=== PATIENT | female | born 1945 | race Caucasian/White ===

== ENCOUNTER 2016-05-20 07:17 | Inpatient (IN) | payer MEDICARE ==
[~2016-05-20] VITALS: Ht 149.9 cm; Wt 72.3 kg
[2016-05-20] VITALS (12 sets, daily range): BP systolic 96–141; BP diastolic 32–70
[~2016-05-20 07:17] MED LIST: ASPI325T4 PO; CHOL10002 PO; DULO60CA6 PO; ISOS10TA4 PO; ISOS60TA2 PO; LORA0.5T PO; LOSA50TA2 PO; METO25TA4 PO; PREG75CA PO; SIMV40TA3 PO; TRAZ50TA15 PO
[2016-05-20] MEDS ORDERED: BACITRACIN 50,000 UNIT in IV NORMAL SALINE 250ML 250 ML IRR ONE (07:45)
[2016-05-20] MEDS ORDERED: VANCOMYCIN 1GM IVPB FOR OMNI 250 ML IV ONE (07:45)
[2016-05-20] MEDS ORDERED: FURO20TA3 PO (07:52)
[2016-05-20] MEDS ORDERED: LIDO700A4 TP (07:52)
[2016-05-20] MEDS ORDERED: CHOL500050 PO (07:52)
[2016-05-20] MEDS ORDERED: SERT100T PO (07:52)
[2016-05-20] MEDS ORDERED: PREG50CA PO (07:52)
[2016-05-20] MEDS ORDERED: LOSA1TAB18 PO (07:52)
[2016-05-20] MEDS ORDERED: POTA20TA4 PO (07:52)
[2016-05-20] MEDS ORDERED: NITR0.4T SL (07:52)
[2016-05-20] MEDS ORDERED: BIMA2.5D EACHEYE (07:52)
[2016-05-20] MEDS ORDERED: ATOR10TA60 PO (07:52)
[2016-05-20] MEDS ORDERED: [UNRECOGNIZED DRUG - OTHER] EACHEYE (07:52)
[2016-05-20] MEDS ORDERED: TOPI100T90 PO (07:52)
[2016-05-20] MEDS ORDERED: TRAM50TA PO (07:54)
[2016-05-20 08:04] LABS: PROTHROMBIN TIME PATIENT 12.7 SEC (11.7-14.0)
[2016-05-20] MEDS ORDERED: DICL1PAT4 TD (08:04)
[2016-05-20 08:20] LABS: HEMATOCRIT 43.3 % (36.0-47.0); HEMOGLOBIN 14.5 g/dL (12.0-15.5); RED BLOOD COUNT 4.45 x10^6/uL (3.50-5.40); RED CELL DISTRIBUTION WIDTH 12.8 % (11.5-14.5); WHITE BLOOD COUNT 5.3 x10^3/uL (4.0-11.0)
[2016-05-20 08:24] LABS: CALCIUM 9.6 mg/dL (8.5-10.1); CREATININE 0.9 mg/dL (0.6-1.0); GFR 61.7; POTASSIUM 4.2 mmol/L (3.5-5.1)
[2016-05-20] MEDS ORDERED: ALBU2.5V14 NEB (08:35)
[2016-05-20] MEDS ORDERED: LIDOCAINE 2%/EPI 1:100,000 20 ML VIAL. ONE (08:50)
[2016-05-20] MEDS ORDERED: FENTANYL PF 100 MCG/2 ML VIAL. IV ONE (10:30)
[2016-05-20] MEDS ORDERED: MIDAZOLAM HCL/PF 5 MG/5 ML VIAL IV ONE (10:30)
[2016-05-20] MEDS ORDERED: LIDOCAINE 2%/EPI 1:100,000 20 ML VIAL. IJ ONE (10:30)
[2016-05-20] MEDS ORDERED: FENTANYL PF 100 MCG/2 ML VIAL. ONE ×3 (10:44→11:50)
[2016-05-20] MEDS ORDERED: MIDAZOLAM HCL/PF 5 MG/5 ML VIAL ONE (10:44)
[2016-05-20] MEDS ORDERED: MIDAZOLAM HCL 2 MG/2 ML VIAL. ONE (11:26)
[2016-05-20] MEDS ORDERED: MIDAZOLAM HCL 2 MG/2 ML VIAL. IV ONE (11:51)
[2016-05-20] MEDS ORDERED: ACET-706 PO (12:17)
[2016-05-20] MEDS ORDERED: CODEINE PO (12:17)
[2016-05-20] MEDS ORDERED: TYLENOL PO (12:17)
[2016-05-20] MEDS ORDERED: ISOS60TA2 PO (14:12)
[2016-05-20] MEDS ORDERED: ALBUTEROL SULFATE 2.5 MG/3 ML NEBU. NEB PRN (14:15)
[2016-05-20] MEDS ORDERED: NITROGLYCERIN SUBLINGUAL 0.4 MG BOTTLE OF 25. SL PRN (14:15)
[2016-05-20] MEDS ORDERED: ACETAMINOPHEN 500 MG TABLET PO PRN (14:30)
[2016-05-20] MEDS: FUROSEMIDE 20 MG TABLET PO SCH (14:41)
[2016-05-20] MEDS ORDERED: NO ANTICOAGULANT THERAPY. MC PRN (14:45)
--- NOTE | 2016-05-20 15:00 | CARD ---
APPROVED REPORT HISTORY The Patient is a 71 year-old female with a history of SSS, with > 3.5 second pauses on event monitor with prior admission for syncope of unclear etiology PROCEDURES Insertion Dual Chamber Pacemaker FLUORO TIME: 3.2 mins 21.31mGy [id number] 40 mL of 2% lidocaine was infiltrated into the skin and subcutaneous tissues for local anesthesia. A n incision was made over the left infraclavicular fossa and using blunt dissection and cautery a pock et was created. Venous access was obtained in the left subclavian vein and 6 [place] sheaths were ins erted. Subsequently, a [employer] bipolar active fixation right ventricular lead model 2088TC/52, serial numbe r [id number] was advanced under fluoroscopic guidance and the tip was positioned in the right ventricu lar apex. Following this, a [employer] bipolar active fixation right atrial lead model 2088TC/46 seria l number [id number] was placed in the right atrial appendage under fluoroscopy guidance. The leads we re secured into place and were attached to a [employer] dual-chamber permanent pacemaker generator mode l [id number], serial number [id number]. This was placed in the pocket that was subsequently closed in 3 laye rs. Hemostasis was secured. At the end of procedure, the right ventricular lead showed sensing amplitude of 12.4 mV, impedance of 580 ohms and a threshold of 0.5 volts. The right atrial lead showed a sensing amplitude of 1.5 mill ivolts, impedance of 493 ohms and a threshold of 1.1 volts. Patient tolerated the procedure well. Th ere were no immediate complications. CONCLUSION Successful insertion of a [employer] Dual Chamber pacemaker for SSS and syncope.
[2016-05-20] MEDS: HYDROCODONE/APAP 5/325MG TABLET. PO PRN ×2 (15:07→19:32)
[2016-05-20] MEDS: PREGABALIN 50 MG CAPSULE PO SCH ×2 (15:08→20:56)
--- NOTE | 2016-05-20 15:14 | RAD ---
EXAM: Chest one view. HISTORY: Pacemaker placement. COMPARISON: 01/11/2014. FINDINGS: A frontal view of the chest is obtained. A left-sided pacemaker has its leads in the right atrium and right ventricle. There are changes of coronary artery bypass grafting. There is a chronic focal scarring in the left costophrenic angle. There is no pneumothorax or pleural effusion. The heart is not enlarged. There are atherosclerotic calcifications of the aorta. IMPRESSION: 1. Left pacemaker in expected position. No pneumothorax.
[2016-05-20] MEDS: POTASSIUM CHLORIDE 20 MEQ TABLET.ER. PO SCH (17:19)
[2016-05-20] MEDS: traZODone 100 MG TABLET. PO SCH (20:56)
[2016-05-20] MEDS: ATORVASTATIN CALCIUM 10 MG TABLET. PO SCH (20:56)
[2016-05-20] MEDS: LATANOPROST 0.005% OPHTH SOLUTION 2.5ML BOTTLE. OU SCH (21:08)
[2016-05-21] MEDS ORDERED: VANCOMYCIN 1 GM in IV NORMAL SALINE 250ML 250 ML IV ONE (00:30)
[2016-05-21] MEDS: HYDROCODONE/APAP 5/325MG TABLET. PO PRN ×4 (02:27→20:09)
[2016-05-21 02:33] VITALS: BP 158/77
[2016-05-21 07:00] VITALS: BP 135/50
--- NOTE | 2016-05-21 08:36 | RAD ---
EXAM: Chest 2 views. HISTORY: Pacemaker placement. COMPARISON: 05/20/2016. FINDINGS: Frontal and lateral views of the chest are obtained. A left-sided pacemaker has its leads in the right atrium and right ventricle. There are changes of coronary artery bypass grafting. An opacity in the left costophrenic angle indicates atelectasis or scarring. Blunting of the left costophrenic angle is chronic. There is no clear pleural effusion. There is no pneumothorax. The heart is not enlarged. There are atherosclerotic calcifications of the aorta. IMPRESSION: 1. Left pacemaker in expected position. No pneumothorax.
[2016-05-21] MEDS: FUROSEMIDE 20 MG TABLET PO SCH ×2 (08:52→14:00)
[2016-05-21] MEDS: POTASSIUM CHLORIDE 20 MEQ TABLET.ER. PO SCH ×2 (08:52→13:00)
[2016-05-21] MEDS: ASPIRIN 325 MG TABLET PO SCH (08:53)
[2016-05-21] MEDS: PREGABALIN 50 MG CAPSULE PO SCH ×3 (08:53→20:09)
[2016-05-21] MEDS: TOPIRAMATE 100 MG TABLET. PO SCH (08:53)
[2016-05-21] MEDS: SERTRALINE 50 MG TABLET. PO SCH (08:53)
[2016-05-21] MEDS: LOSARTAN POTASSIUM 50 MG TABLET. PO SCH (08:54)
[2016-05-21] MEDS: ISOSORBIDE MONONITRATE ER 60 MG TAB.ER.24H PO SCH (08:54)
[2016-05-21] MEDS: ONDANSETRON PF 4 MG/2 ML VIAL. IV PRN ×2 (09:49→20:12)
--- NOTE | 2016-05-21 10:48 | PDOC ---
VALERIAYAMILEX DEE DIRECTOR OF CUSTOMER SERVICE 05/21/16 1048: CARDIO Progress Notes Date and Time Date of Service 05/21/2016 Time of Evaluation 1030 Subjective Subjective: No Chest Pain, No shortness of breath, No Palpitations, Other ( nausea today, feels weak) Vitals Vitals Vital Signs Date Time Temp Pulse Resp B/P Pulse Ox O2 Delivery O2 Flow Rate FiO2 05/21/16 08:54 69 135/50 05/21/16 07:51 Room Air 05/21/16 07:39 18 94 05/21/16 07:00 98.9 98.9 Weight Weight [ ] Input and Output Intake and Output Intake and Output 05/21/16 07:00 Intake Total 1280 ml Output Total 675 ml Balance 605 ml Intake Oral 1280 ml Output Urine Total 675 ml Physical Exam HEENT: Neck Supple W Full Motion Chest: Symmetric LUNGS: Clear to Auscultation Heart: S1S2, RRR Abdomen: Soft N/T Extremities: No Calf Tenderness Neurology: alert, oriented, follow commands Other Exams left chest surgical incision dry and intact. Neurovascular status to bilateral LE intact Assessment Assessment 1. SSS: S/P [employer] Dual Chamber pacemaker. No complications 2. Weakness/nausea 3. HTN/HLP 4. Mild . Recommendation 1. OT/PT today, safety concern 2. CXR/interrgoate device. 3. Anticipate DC in AM. 4. Continue with secondary prevention MITCHELL REGAN MD 05/21/16 1657: CARDIO Progress Notes Plan Plan Patient seen and examined. Agree with above nurse practitioner note. No acute events overnight. Status post dual-chamber pacemaker with the excellent results. Has normal functioning device is morning on interrogation. Due to her multiple sedative agents she feels a little lightheaded and had some dizziness. Otherwise no significant pathology. Left infraclavicular pacemaker site appears to be clean, dry and intact. Will give IV fluids and have physical therapy and occupational therapy assess her. Anticipate monitoring overnight and likely discharge in a.m. if she is stable. YAMILEX MULLIGAN APRN May 21, 2016 10:48 MITCHELL REGAN MD May 21, 2016 16:57
[2016-05-21 11:00] VITALS: BP 100/48
[2016-05-21] MEDS ORDERED: IV NORMAL SALINE 500ML BAG 500 ML IV ONE (12:45)
[2016-05-21 15:12] VITALS: BP 124/52
[2016-05-21 19:00] VITALS: BP 166/84
[2016-05-21] MEDS: LATANOPROST 0.005% OPHTH SOLUTION 2.5ML BOTTLE. OU SCH (20:08)
[2016-05-21] MEDS: ATORVASTATIN CALCIUM 10 MG TABLET. PO SCH (20:09)
[2016-05-21] MEDS: traZODone 100 MG TABLET. PO SCH (20:09)
[2016-05-21 22:32] VITALS: BP 113/54
[2016-05-22 03:23] VITALS: BP 150/52
[2016-05-22] MEDS: HYDROCODONE/APAP 5/325MG TABLET. PO PRN ×4 (03:23→22:11)
[2016-05-22 06:10] LABS: CALCIUM 9.2 mg/dL (8.5-10.1); CREATININE 0.9 mg/dL (0.6-1.0); GFR 61.7
[2016-05-22 07:16] VITALS: BP 129/64
[2016-05-22] MEDS: PREGABALIN 50 MG CAPSULE PO SCH ×3 (08:41→20:14)
[2016-05-22] MEDS: ASPIRIN 325 MG TABLET PO SCH (08:41)
[2016-05-22] MEDS: ISOSORBIDE MONONITRATE ER 60 MG TAB.ER.24H PO SCH (08:42)
[2016-05-22] MEDS: TOPIRAMATE 100 MG TABLET. PO SCH (08:42)
[2016-05-22] MEDS: FUROSEMIDE 20 MG TABLET PO SCH ×2 (08:42→14:00)
[2016-05-22] MEDS: LOSARTAN POTASSIUM 50 MG TABLET. PO SCH ×2 (08:42→12:00)
[2016-05-22] MEDS: POTASSIUM CHLORIDE 20 MEQ TABLET.ER. PO SCH ×2 (08:43→18:03)
[2016-05-22] MEDS: SERTRALINE 50 MG TABLET. PO SCH (09:30)
[2016-05-22 10:06] VITALS: BP 86/40
--- NOTE | 2016-05-22 10:43 | PDOC3 ---
Discharge Summary Visit Information Date of Admission: May 20, 2016 Date of Discharge: May 22, 2016 Admitting Diagnosis: SSS; S/P PPM placement Final Diagnosis SSS: S/P PPM placement Brief Hospital Course Allergies Allergies Coded Allergies Type Severity Reaction Last Updated Verified clindamycin HCl Allergy Severe hives 03/23/13 Yes clindamycin palmitate HCl Allergy Severe hives 03/23/13 Yes clindamycin phosphate Allergy Severe hives 03/23/13 Yes lisinopril Allergy Severe Shortness of Air 03/23/13 Yes Penicillins Allergy Intermediate Hives 03/23/13 Yes docusate Allergy Intermediate 03/18/16 Yes promethazine HCl Allergy Intermediate "Regress to childhood" 03/23/13 Yes Uncoded Allergies Type Severity Reaction Last Updated Verified blue cheese Allergy Unknown 05/20/16 Vital Signs Vital Signs Date Time Temp Pulse Resp B/P Pulse Ox O2 Delivery O2 Flow Rate FiO2 05/22/16 10:06 98.8 67 18 86/40 94 Room Air 98.8 Lab Results Laboratory Tests Test 05/22/16 05:00 Sodium Level 142mmol/L (136-145) Potassium Level 4.0mmol/L (3.5-5.1) Chloride Level 103mmol/L (98-107) Carbon Dioxide Level 29mmol/L (21-32) Anion Gap 10 (6-14) Blood Urea Nitrogen 15mg/dL (7-20) Creatinine 0.9mg/dL (0.6-1.0) Estimated GFR (Cockcroft-Gault) 61.7 Glucose Level 157mg/dL (70-99) Calcium Level 9.2mg/dL (8.5-10.1) Laboratory Tests Test 05/22/16 05:00 Sodium Level 142mmol/L (136-145) Potassium Level 4.0mmol/L (3.5-5.1) Chloride Level 103mmol/L (98-107) Carbon Dioxide Level 29mmol/L (21-32) Anion Gap 10 (6-14) Blood Urea Nitrogen 15mg/dL (7-20) Creatinine 0.9mg/dL (0.6-1.0) Estimated GFR (Cockcroft-Gault) 61.7 Glucose Level 157mg/dL (70-99) Calcium Level 9.2mg/dL (8.5-10.1) Brief Hospital Course This is a pleasant 71 yo female admitted for planned PPM placement. Pt has been noted with SSS verified via event monitor. She tolerated procedure well except for feeling of weakness and significant nausea mainly on POD#1 prompting her to stay for one more day. AOx3, did well with OT/PT evaluation, ambulated in rouse way without difficulty. Lungs are clear to auscultation and surgical pain is controlled. VSS has been stable but this morning she was noted with low BP post antihypertensive medications with mild dizziness. BP med will then be decreased and encourage pt to make a BP diary and to call our office for BP outside the parameters given. No complication otherwise. Left chest incision intact with steri strips well approximated dry and no oozing. Left arm on a sling and activity limitation discussed. Neurovascular status to LUE intact. DC late this afternoon to her daughters home which she will stay in the next 2 days if BP is consistently adequate. Post pacemaker instructions have been reviewed. Discharge Information Condition at Discharge: Stable Follow Up: Weeks (1-2 week wound check then follow up in 3 months) Disposition/Orders: D/C to Home (to daughter) Scheduled ([senbrnza]) 1 DROP EACHEYE TID (Reported) Aspirin (Aspirin) 325 MG PO DAILY (Reported) Atorvastatin Calcium (Atorvastatin Calcium) 10 MG PO HS (Reported) Bimatoprost (Lumigan) 1 DROP EACHEYE QHS (Reported) Cholecalciferol (Vitamin D3) (Vitamin D) 100,000 UNIT PO QTU (Reported) Diclofenac Epolamine (Flector) 1 EACH TD 3X/WEEK (Reported) Duloxetine Hcl (Cymbalta) 60 MG PO BID (Reported) Furosemide (Furosemide) 20 MG PO BID (Reported) Isosorbide Mononitrate (Isosorbide Mononitrate Er) 1 TAB PO DAILY (Reported) Lidocaine (Lidoderm) 1 PATCH TP DAILY (Reported) Losartan Potassium (Losartan Potassium) MG PO DAILY (Reported) Potassium Chloride (Klor-Con M20) 20 MEQ PO BID (Reported) Pregabalin (Lyrica) 50 MG PO TID (Reported) Sertraline Hcl (Zoloft) 100 MG PO DAILY (Reported) Topiramate (Topiramate) 100 MG PO DAILY (Reported) Trazodone Hcl (Trazodone Hcl) 100 MG PO HS (Reported) Scheduled PRN ([tylenol w/codeine #5]) 1 TAB PO Q4HRS PRN PRN PAIN (Reported) Acetaminophen With Codeine (Tylenol With Codeine #4 Tablet) 1 TAB PO PRN Q4HRS PRN PRN PAIN (Reported) Albuterol Sulfate (Albuterol Sulfate Conc Neb Soln) 1 VIAL NEB Q4HRS PRN PRN SHORTNESS OF BREATH (Reported) Lorazepam (Lorazepam) 1 MG PO PRN BID PRN PRN ANXIETY / AGITATION (Reported) Nitroglycerin (Nitrostat) 0.4 MG SL PRN Q5MIN PRN PRN CHEST PAIN (Reported) Tramadol Hcl (Tramadol Hcl) 1 TAB PO BID PRN PRN PAIN (Reported) Discontinued Medications Isosorbide Mononitrate (Isosorbide Mononitrate Er) 1 TAB PO DAILY08 (Reported) Losartan/Hydrochlorothiazide (Losartan-Hctz 100-12.5 Mg Tab) 1 EACH PO DAILY ( Reported) Patient Instructions Patient Instructions Must know & what to expect after device implant: 1. Your surgical dressing should be removed prior to discharge from the hospital, but allow the steri- strips to fall off naturally. 2. Activity restrictions: DO NOT raise arm above shoulder level, lift anything heavier than a gallon of milk, and no push or pull motions such as vacuuming/lawn mowing, no swinging motions (golf), etc for 4 weeks. 3. It is OK to use a cell phone or other electronic devices just be sure you do not store it in a breast pocket on the side where the device was placed. 4. Device will be interrogated prior to your discharge from the hospital and then every 3 months for defibrillators and every 6 months for pacemakers. You may be asked to have your device checked remotely from home as well, but this will depend on your particular physicians preference. 5. You may remove the arm immobilizer the day after device placement. Wear the arm immobilizer/splint at night (during sleep times) for 2 week to prevent unintended arm movement that can cause lead dislodgement. 6. Do not drive for one week as the task of driving may lead to unintended arm motion that may cause lead dislodgement. The seatbelt will also rub against the incision site & cause irritation. 7. It is our recommendation that you utilize Tylenol at home for pain control. You need to call our office if you are having uncontrollable pain at the incision site. 8. Keep your incision clean and dry. It is OK to shower. DO NOT submerge in bath, pool, or hot tub, until cleared by your doctor, as this could lead to increase risk of infection.. It is OK to use regular soap just do not scrub the incision site. Water spray from shower should not directly hit the incision. Be sure to blot dry not rub. 9. Inspect your incision daily. If you notice any increased redness, swelling , or drainage, or if you start running a fever, call the office immediately. The number is [phone]. 10. For women, if you need to protect against irritation from the bra straps, you can place a piece of gauze over the incision site for cushion. Please be sure to tape it loosely to allow air to the site & remove the gauze when you remove the bra. 11. Be sure to carry your device identification information card in your wallet/purse at all times. 12. It is OK to go through security at the airport with your device, but be sure to let the TSA know prior to proceeding as the security settings change depending on varying factors. Please do whatever is requested by security at that time. 13. Some of the newer devices may be MRI compatible but, currently, the use of these devices is not widespread, so you likely will not be able to have an MRI. Please clarify this with your physician. If at any time, you feel lightheaded or dizzy/faint, stop what you are doing & lie down immediately. If you are driving, get to the side of the road quickly, turn your car off & call 911 on your cell phone. DO NOT continue to drive as this may cause an accident that seriously injures yourself &/or others. Call the office at [phone] for any questions or concerns. YAMILEX MULLIGAN APRN May 22, 2016 10:43
[2016-05-22] MEDS ORDERED: LOSA50TA6 PO (11:12)
[2016-05-22] MEDS ORDERED: ISOS30TA4 PO (11:12)
[2016-05-22] MEDS ORDERED: IV NORMAL SALINE 500ML BAG 500 ML IV ONE (11:15)
[2016-05-22] MEDS ORDERED: IV NORMAL SALINE 1000ML BAG 1,000 ML IV ONE (11:30)
[2016-05-22 14:32] VITALS: BP 111/47
[2016-05-22 19:00] VITALS: BP 96/50
[2016-05-22] MEDS: ATORVASTATIN CALCIUM 10 MG TABLET. PO SCH (20:14)
[2016-05-22] MEDS: traZODone 100 MG TABLET. PO SCH (20:14)
[2016-05-22] MEDS: LATANOPROST 0.005% OPHTH SOLUTION 2.5ML BOTTLE. OU SCH (20:14)
[2016-05-22 22:50] VITALS: BP 110/73
[2016-05-23] VITALS (8 sets, daily range): BP systolic 95–122; BP diastolic 33–78
[2016-05-23] MEDS: HYDROCODONE/APAP 5/325MG TABLET. PO PRN ×3 (03:56→20:18)
[2016-05-23] MEDS: TOPIRAMATE 100 MG TABLET. PO SCH (09:00)
[2016-05-23] MEDS: FUROSEMIDE 20 MG TABLET PO SCH ×2 (09:00→14:00)
[2016-05-23] MEDS: ASPIRIN 325 MG TABLET PO SCH (09:00)
[2016-05-23] MEDS: SERTRALINE 50 MG TABLET. PO SCH (09:00)
[2016-05-23] MEDS: PREGABALIN 50 MG CAPSULE PO SCH ×3 (09:00→20:18)
[2016-05-23] MEDS: POTASSIUM CHLORIDE 20 MEQ TABLET.ER. PO SCH ×2 (09:03→17:00)
[2016-05-23] MEDS: ISOSORBIDE MONONITRATE ER 30 MG TAB.ER.24H PO SCH (13:14)
[2016-05-23] MEDS: LOSARTAN POTASSIUM 50 MG TABLET. PO SCH (13:14)
[2016-05-23] MEDS: ATORVASTATIN CALCIUM 10 MG TABLET. PO SCH (20:18)
[2016-05-23] MEDS: traZODone 100 MG TABLET. PO SCH (20:18)
[2016-05-23] MEDS: LATANOPROST 0.005% OPHTH SOLUTION 2.5ML BOTTLE. OU SCH (20:18)
[2016-05-24] MEDS: HYDROCODONE/APAP 5/325MG TABLET. PO PRN ×2 (02:17→15:25)
[2016-05-24 03:18] VITALS: BP 137/58
[2016-05-24 07:00] VITALS: BP 144/62
[2016-05-24] MEDS: ISOSORBIDE MONONITRATE ER 30 MG TAB.ER.24H PO SCH (08:29)
[2016-05-24] MEDS: SERTRALINE 50 MG TABLET. PO SCH (08:29)
[2016-05-24] MEDS: POTASSIUM CHLORIDE 20 MEQ TABLET.ER. PO SCH (08:29)
[2016-05-24] MEDS: TOPIRAMATE 100 MG TABLET. PO SCH (08:29)
[2016-05-24] MEDS: ASPIRIN 325 MG TABLET PO SCH (08:29)
[2016-05-24] MEDS: LOSARTAN POTASSIUM 50 MG TABLET. PO SCH (08:30)
[2016-05-24] MEDS: FUROSEMIDE 20 MG TABLET PO SCH ×2 (08:30→15:25)
[2016-05-24] MEDS: PREGABALIN 50 MG CAPSULE PO SCH ×2 (08:31→15:25)
[2016-05-24 11:07] VITALS: BP 108/50
--- NOTE | 2016-05-24 12:59 | PDOC2 ---
NEUROLOGY CONSULT Date of Admission Date of Admission DATE: 05/24/16 TIME: 12:52 Reason for Consult Reason for Consult: Tremor Referring Physician Referring Physician: Mr. Gillespie Source Source: Chart review, Patient History of Present Illness History of Present Illness The patient is a 71-year-old right-handed female admitted for pacemaker placement. She has noticed a tremor in her right leg over the last several months, and also has had some more in her right arm in the last day or 2. As I recall I have seen her in the past for essential tremor. I have also seen her for chronic pain in what I ended up thinking was a conversion disorder. She was in the hospital 2 months ago with a concussion. She has not figured out any inciting a mitigating features for the tremor. There is no family history of tremor. There is no history of stroke, seizure, or head injury but she did have stroke-like symptoms 18 years ago and again no organic etiology was found. She does have a diagnosis of fibromyalgia. She has no altered consciousness with the tremor. Past Medical History Cardiovascular: CAD, HTN, Hyperlipidemia, Other (Peripheral vascular disease) Pulmonary: Asthma CENTRAL NERVOUS SYSTEM: Migraine Rheumatologic: Fibromyalgia Endocrine: Diabetes Past Surgical History Past Surgical History: Pacemaker, CABG, Hernia Repair ( ventral), Tonsillectomy (adenoids), Other ( coronary stents, gastric stapling, partial amputation right foot) Family History Family History: No pertinent hx Social History Social History No tobacco or alcohol, one cup of coffee a day Current Medications Current Medications Current Medications Bacitracin 48947 unit/Sodium Chloride 250 ml @ 0 mls/hr 1X ONCE IRR Last administered on 05/20/16 12:34; Start 05/20/16 at 07:45; Stop 05/20/16 at 07:46 ; Status DC Vancomycin HCl 250 ml @ 250 mls/hr 1X ONCE IV Last administered on 05/20/16 12:33; Start 05/20/16 at 07:45; Stop 05/20/16 at 08:44; Status DC Lidocaine/ Epinephrine (Xylocaine 2%-Epi 1:100,000) 20 ml STK-MED ONCE .ROUTE ; Start 05/20/16 at 08:50; Stop 05/20/16 at 08:51; Status DC Midazolam HCl (Versed) 5 mg 1X ONCE IV Last administered on 05/20/16 12:34; Start 05/20/16 at 10:30; Stop 05/20/16 at 10:31; Status DC Fentanyl Citrate (Fentanyl 2ml Vial) 100 mcg 1X ONCE IV Last administered on 12:34; Start 05/20/16 at 10:30; Stop 05/20/16 at 10:31; Status DC Lidocaine/ Epinephrine (Xylocaine 2%-Epi 1:100,000) 20 ml 1X ONCE IJ Last administered on 05/20/16 12:33; Start 05/20/16 at 10:30; Stop 05/20/16 at 10:31 ; Status DC Fentanyl Citrate (Fentanyl 2ml Vial) 100 mcg STK-MED ONCE .ROUTE ; Start at 10:44; Stop 05/20/16 at 10:45; Status DC Midazolam HCl (Versed) 5 mg STK-MED ONCE .ROUTE ; Start 05/20/16 at 10:44; Stop 05/20/16 at 10:45; Status DC Fentanyl Citrate (Fentanyl 2ml Vial) 100 mcg STK-MED ONCE .ROUTE ; Start at 11:21; Stop 05/20/16 at 11:22; Status DC Midazolam HCl (Versed) 2 mg STK-MED ONCE .ROUTE ; Start 05/20/16 at 11:26; Stop 05/20/16 at 11:27; Status DC Fentanyl Citrate (Fentanyl 2ml Vial) 100 mcg STK-MED ONCE .ROUTE ; Start at 11:50; Stop 05/20/16 at 11:51; Status DC Midazolam HCl (Versed) 2 mg 1X ONCE IV Last administered on 05/20/16 12:35; Start 05/20/16 at 11:51; Stop 05/20/16 at 11:56; Status DC Aspirin (Abelino Aspirin) 325 mg [id number] PO Last administered on 05/24/16 08: 29; Start 05/21/16 at 08:00 Atorvastatin Calcium (Lipitor) 10 mg HS PO Last administered on 05/23/16 20:18 ; Start 05/20/16 at 21:00 Furosemide (Lasix) 20 mg BID92 PO Last administered on 05/24/16 08:30; Start 05/20/16 at 15:00 Isosorbide Mononitrate (Imdur) 60 mg DAILY08 PO Last administered on 05/22/16 08:42; Start 05/21/16 at 08:00; Stop 05/23/16 at 06:57; Status DC Nitroglycerin (Nitrostat) 0.4 mg PRN Q5MIN PRN SL CHEST PAIN; Start 05/20/16 at 14:15 Potassium Chloride (Klor-Con) 20 meq BIDWMEALS PO Last administered on 08:29; Start 05/20/16 at 17:00 Pregabalin (Lyrica) 50 mg TID PO Last administered on 05/24/16 08:31; Start at 15:00 Topiramate (Topamax) 100 mg DAILY PO Last administered on 05/24/16 08:29; Start 05/21/16 at 09:00 Trazodone HCl (Desyrel) 100 mg QHS PO Last administered on 05/23/16 20:18; Start 05/20/16 at 21:00 Latanoprost (Xalatan) 1 drop QHS OU Last administered on 05/23/16 20:18; Start 05/20/16 at 21:00 Losartan Potassium (Cozaar) 100 mg DAILY PO Last administered on 05/22/16 08: 42; Start 05/21/16 at 09:00; Stop 05/23/16 at 06:57; Status DC Sertraline HCl (Zoloft) 100 mg DAILY PO Last administered on 05/24/16 08:29; Start 05/21/16 at 09:00 Albuterol Sulfate (Ventolin Neb Soln) 2.5 mg PRN Q6HRS PRN NEB SHORTNESS OF BREATH Last administered on 05/20/16 19:59; Start 05/20/16 at 14:15 Acetaminophen (Tylenol) 500 mg PRN Q6HRS PRN PO MILD PAIN / TEMP; Start at 14:30 Acetaminophen/ Hydrocodone Bitart (Lortab 5/325) 1 tab PRN Q6HRS PRN PO MODERATE - SEVERE PAIN Last administered on 05/23/16 20:18; Start 05/20/16 at 14:30 Acetaminophen/ Hydrocodone Bitart (Lortab 5/325) 2 tab PRN Q6HRS PRN PO MODERATE - SEVERE PAIN Last administered on 05/24/16 02:17; Start 05/20/16 at 14:30 Info 1 ea 1 ea CONT PRN PRN MC PER PROTOCOL; Start 05/20/16 at 14:45 Vancomycin HCl/ Sodium Chloride (Iv Sodium Chloride 0.9% 250ml) 250 ml @ 250 mls/hr 1X ONCE IV Last administered on 05/20/16 23:25; Start 05/21/16 at 00: 30; Stop 05/21/16 at 01:29; Status DC Ondansetron HCl (Zofran) 4 mg PRN Q6HRS PRN IV NAUSEA/VOMITING Last administered on 05/21/16 20:12; Start 05/20/16 at 14:45 Acetaminophen/ Hydrocodone Bitart 2 tab 2 tab PRN Q4HRS PRN PO MODERATE PAIN, SEVERE PAIN Last administered on 05/21/16 06:39; Start 05/20/16 at 14:45; Stop 05/21/16 at 10:38; Status DC Sodium Chloride (Iv Sodium Chloride 0.9% 500ml Bag) 500 ml @ 500 mls/hr 1X ONCE IV Last administered on 05/21/16 12:45; Start 05/21/16 at 12:45; Stop at 13:44; Status DC Losartan Potassium (Cozaar) 50 mg DAILY PO Last administered on 05/24/16 08:30 ; Start 05/22/16 at 12:00 Isosorbide Mononitrate 30 mg 30 mg DAILY PO Last administered on 05/24/16 08: 29; Start 05/23/16 at 09:00 Sodium Chloride 500 ml @ 500 mls/hr 1X ONCE IV Last administered on 11:27; Start 05/22/16 at 11:15; Stop 05/22/16 at 12:14; Status DC Sodium Chloride (Iv Sodium Chloride 0.9% 1000ml Bag) 1,000 ml @ 125 mls/hr 1X ONCE IV ; Start 05/22/16 at 11:30; Stop 05/22/16 at 19:29; Status Cancel Active Scripts Active Reported Losartan Potassium 50 Mg Tablet Mg PO DAILY Isosorbide Mononitrate Er (Isosorbide Mononitrate) 30 Mg Tab.er.24h 1 Tab PO DAILY [tylenol w/codeine #5] 1 Tab PO Q4HRS PRN Tylenol With Codeine #4 Tablet (Acetaminophen/Codeine Phosphate) 1 Each Tablet 1 Tab PO PRN Q4HRS PRN Albuterol Sulfate Conc Neb Soln (Albuterol Sulfate) 2.5 Mg/0.5 Ml Vial.neb 1 Vial NEB Q4HRS PRN Flector (Diclofenac Epolamine) 1 Each Patch.td12 1 Each TD 3X/WEEK Tramadol Hcl 50 Mg Tablet 1 Tab PO BID PRN [senbrnza] 1 Drop EACHEYE TID Lumigan (Bimatoprost) 2.5 Ml Drops 1 Drop EACHEYE QHS Klor-Con M20 (Potassium Chloride) 20 Meq Tab.er.prt 20 Meq PO BID Vitamin D (Cholecalciferol (Vitamin D3)) 50,000 Unit Capsule 100,000 Unit PO QTU Atorvastatin Calcium 10 Mg Tablet 10 Mg PO HS Furosemide 20 Mg Tablet 20 Mg PO BID Nitrostat (Nitroglycerin) 0.4 Mg Tab.subl 0.4 Mg SL PRN Q5MIN PRN Lyrica (Pregabalin) 50 Mg Capsule 50 Mg PO TID Zoloft (Sertraline Hcl) 100 Mg Tablet 100 Mg PO DAILY Topiramate 100 Mg Tablet 100 Mg PO DAILY Lidoderm (Lidocaine) 700 Mg Adh..patch 1 Patch TP DAILY Cymbalta (Duloxetine Hcl) 60 Mg Capsule.dr 60 Mg PO BID Aspirin 325 Mg Tablet 325 Mg PO DAILY Trazodone Hcl 50 Mg Tablet 100 Mg PO HS Lorazepam 0.5 Mg Tablet 1 Mg PO PRN BID PRN Allergies Allergies: Coded Allergies: clindamycin HCl (Verified Allergy, Severe, hives, 03/23/13) clindamycin palmitate HCl (Verified Allergy, Severe, hives, 03/23/13) clindamycin phosphate (Verified Allergy, Severe, hives, 03/23/13) lisinopril (Verified Allergy, Severe, Shortness of Air, 03/23/13) Penicillins (Verified Allergy, Intermediate, Hives, 03/23/13) docusate (Verified Allergy, Intermediate, 03/18/16) promethazine HCl (Verified Allergy, Intermediate, "Regress to childhood", 03/23/13) Uncoded Allergies: blue cheese (Allergy, Unknown, 05/20/16) ROS Review of System Negative for fevers, chills, weight loss, shortness of breath, chest pain, indigestion, hematochezia, melena, dysuria. Full 14-point review systems is negative. Physical Exam Physical Examination PHYSICAL EXAMINATION: Vital signs: see above. General appearance is normal and in no acute distress. HEENT: Normocephalic and nontraumatic. Eyes, nose, ears, and throat are unremarkable. Neck is supple. No lymphadenopathy. No bruits are heard over the carotid artery. No crepitus. NEUROLOGICAL EXAMINATION: Mental Status Examination: Alert. Oriented to time, place, and person. Answers questions and follows commends. Pupils are equal round and reactive to light and accommodation. Extraocular movements are intact. Visual field exam shows no defect on the direct confrontation. No motor or sensory deficits on the facial exam. Uvula in the midline and the soft palate elevated symmetrically. No deviation of the tongue to any direction. Gross hearing is normal. Shoulder shrug normal. Muscle tone is normal. Muscle strength is 5. Deep tendon reflexes are 2+ all around. Plantar reflex is with flexion response on left, right foot amputated. [id number] test performance is accurate. Alternative movements are accurate. Gait not tested. Sensory exam shows no deficits. No cerebellar signs are elicited. She has a postural tremor of the right arm and right leg, with a voluntary component that appears with distraction as I rapidly move the right leg back and forth, the tremor disappeared. There was no rigidity or other Parkinsonian signs. Vitals VITALS Vital Signs Date Time Temp Pulse Resp B/P Pulse Ox O2 Delivery O2 Flow Rate FiO2 05/24/16 11:07 99.2 70 18 108/50 92 Room Air 99.2 Labs Labs Laboratory Tests Test 05/24/16 07:29 05/24/16 11:13 Glucose (Fingerstick) 83mg/dL (70-99) 136mg/dL (70-99) Laboratory Tests Test 05/24/16 07:29 05/24/16 11:13 Glucose (Fingerstick) 83mg/dL (70-99) 136mg/dL (70-99) Images Images Brain MRI, 03/17/16: Mild chronic white matter changes. No acute findings. Assessment/Plan Assessment/Plan Impression: Essential tremor, with some voluntary component, no evidence of parkinsonism or seizure activity. I don't see any offending medications although the inhaler could precipitate. Recommendations: I believe the risks outweigh the benefits of starting another medication for tremor Therefore, just observe, and the patient can return to the neurology clinic for medication if tremor worsens. Thank you for letting me help with patient's care. DIANE DODGE MD May 24, 2016 12:59
[2016-05-24] MEDS ORDERED: FURO-69 PO (13:04)
--- NOTE | 2016-05-24 13:13 | PDOC ---
YAMILEX MULLIGAN PRODUCTION LINE ASSEMBLER 05/24/16 1313: CARDIO Progress Notes Date and Time Date of Service 05/24/2016 Time of Evaluation 1000 Subjective Subjective: No Chest Pain, No shortness of breath, No Palpitations, Other ( complians of continued right arm tremors, no nausea and dizziness resolved. ) Vitals Vitals Vital Signs Date Time Temp Pulse Resp B/P Pulse Ox O2 Delivery O2 Flow Rate FiO2 05/24/16 11:07 99.2 70 18 108/50 92 Room Air 99.2 Weight Weight [ ] Input and Output Intake and Output Intake and Output 05/24/16 07:00 Intake Total 1700 ml Balance 1700 ml Intake Oral 1700 ml # Voids 1 Laboratory Labs Laboratory Tests Test 05/24/16 07:29 05/24/16 11:13 Glucose (Fingerstick) 83mg/dL (70-99) 136mg/dL (70-99) Physical Exam HEENT: Neck Supple W Full Motion Chest: Symmetric LUNGS: Clear to Auscultation Heart: S1S2, RRR (SR with intermittent AV pacing) Abdomen: Soft N/T Extremities: No Calf Tenderness Neurology: alert, oriented, follow commands Other Exams left surgical incision D/I and well approximated without oozing. Neurovascular status to LUE intact, sling in place. Assessment Assessment 1. SSS: S/P [employer] Dual Chamber pacemaker. No complications 2. Weakness/nausea/dizziness/hypotension: resolved 3. Increasing right arm and leg tremors 4. HTN/HLP 5. Mild . Recommendation 1. OT/PT to reevaluate, anticipated DC today likely SNU 2. Consult Neurology regarding increasing tremors prior to discharge. 3. Continue with secondary prevention 4. Follow up on 06/03/2016 at 11 AM for wound check follow up. 5. Continue with decreased dose of losartan/imdur/lasix. MITCHELL REGAN MD 05/24/16 9632: CARDIO Progress Notes Plan Plan Pt. seen and examined. Agree with above SAP ADMINISTRATOR Note. No acute events overnight. Right sided tremors, etiology unclear. She has poor social support at home. Agree with SNU referral. Will f/u in clinic. YAMILEX MULLIGAN APRN May 24, 2016 13:13 MITCHELL REGAN MD May 24, 2016 13:49
[2016-05-24 14:49] VITALS: BP 130/55
== END 2016-05-24 17:10 | disposition home or self-care (01) | DRG 244 ==
LOC: CCL 07:17 → CVICU 11:07
PROVIDERS: ADMIT Internal Medicine Cardiovascular Disease; ATTEND Internal Medicine Cardiovascular Disease
PROC: 0JH606Z Insertion of Pacemaker, Dual Chamber into Chest Subcutaneous Tissue and Fascia, Open Approach (ICD-10-PCS; principal; 2016-05-20)
PROC: 02H63JZ Insertion of Pacemaker Lead into Right Atrium, Percutaneous Approach (ICD-10-PCS; 2016-05-20)
PROC: 02HK3JZ Insertion of Pacemaker Lead into Right Ventricle, Percutaneous Approach (ICD-10-PCS; 2016-05-20)
DX: I49.5 Sick sinus syndrome (principal); E11.9 Type 2 diabetes mellitus without complications; G43.909 Migraine, unspecified, not intractable, without status migrainosus; E78.5 Hyperlipidemia, unspecified; G25.0 Essential tremor; G89.29 Other chronic pain; I10 Essential (primary) hypertension; I25.10 Atherosclerotic heart disease of native coronary artery without angina pectoris; I73.9 Peripheral vascular disease, unspecified; J45.909 Unspecified asthma, uncomplicated; M79.7 Fibromyalgia; Z95.1 Presence of aortocoronary bypass graft; Z95.5 Presence of coronary angioplasty implant and graft; Z89.431 Acquired absence of right foot; Z79.82 Long term (current) use of aspirin; Z88.1 Allergy status to other antibiotic agents; Z88.0 Allergy status to penicillin; Z88.8 Allergy status to other drugs, medicaments and biological substances; Z91.018 Allergy to other foods; Z79.899 Other long term (current) drug therapy; I35.0 Nonrheumatic aortic (valve) stenosis
CPT/HCPCS: 33208; 36415; 71010; 71020; 80048; 82947; 85027; 85610; 94250; 94640; C1785; C1892; C1898; J2250; J2405; J3010; J3370; J3490; J7040; J7050; 97110; 97535; J7030

== ENCOUNTER → 2017-11-14 | Outpatient (CLI) | payer MEDICARE ==
[~2017-11-14] MED LIST changes: +ACET-706 PO; +ALBU2.5V14 NEB; -ASPI325T4 PO; +ASPI325T8 PO; +ATOR10TA60 PO; +BIMA2.5D EACHEYE; +CHOL500050 PO; +CODEINE PO; +FLECTOR1 EACH TD; +FURO-69 PO; +FURO20TA3 PO; +ISOS30TA4 PO; +LIDO700A4 TP; +LOSA1TAB25 PO; +LOSA50TA6 PO; +NITR0.4T SL; +POTA20TA4 PO; +PREG50CA PO; +REGADENOSON 0.4 MG/5 ML DISP.SYRIN. IV ONE; +SERT100T PO; +TOPI100T8 PO; +TRAM50TA PO; +TRAZ-85 PO; -TRAZ50TA15 PO; +TYLENOL PO; +[UNRECOGNIZED DRUG - OTHER] EACHEYE
--- NOTE | 2017-11-14 10:13 | CARD ---
MR#: [id number] Date of Study: 11/14/2017 Ordering Physician: MITCHELL FLEMING, Referring Physician: MITCHELL FLEMING, Tech: Mariaelena Emmanuel APPROVED REPORT EXAM: Two-dimensional and M-mode echocardiogram with Doppler and color Doppler. Other Information Quality : GoodHR: 65bpm INDICATION Abnormal ECG Hypertension/HCVD Coronary Artery Disease 2D DIMENSIONS RVDd1.8 (2.9-3.5cm)Left Atrium(2D)3.8 (1.6-4.0cm) IVSd0.8 (0.7-1.1cm)Aortic Root(2D)2.6 (2.0-3.7cm) LVDd5.8 (3.9-5.9cm)LVOT Diameter2.1 (1.8-2.4cm) PWd1.0 (0.7-1.1cm)LVDs3.0 (2.5-4.0cm) FS (%) 47.7 %SV130.6 ml LVEF(%)78.4 (>50%) Aortic Valve AoV Peak Kevin.168.8cm/sAoV VTI38.1cm AO Peak GR.11.4mmHgLVOT VTI 19.69cm AO Mean GR.6mmHgAI P 1/2 [id number] Mitral Valve MV E Giplcyaz91.6cm/sMV DECEL [id number] MV A Gkgpnzot78.5cm/sE/A Ratio1.0 TDI Lateral E' P. V7.25cm/sMedial E' P. V8.42cm/s E/Lateral E'11.8E/Medial E'10.2 Tricuspid Valve TR P. Zbzztznu022yj/sRAP YGZSLSMP5deGp TR Peak Gr.87zfPyCXVV91uuAx Pulmonary Vein S1 Oikblivx86.3cm/sS2 Ovsarnew84.55cm/s D2 Mxdujecr24.6cm/s LEFT VENTRICLE The Left Ventricle is borderline dilated. There is normal left ventricular wall thickness. The left v entricular systolic function is normal and the ejection fraction is within normal range. EF 65% Septa l motion consistent with post-operative state. Transmitral Doppler flow pattern is Grade II-pseudonor mal filling dynamics. RIGHT VENTRICLE The right ventricle is not well visualized. There is normal right ventricular wall thickness. The rig ht ventricular systolic function is normal. ATRIA The left atrium size is normal. The right atrium size is normal. Interatrial septum not well visualiz ed. AORTIC VALVE The aortic valve is normal in structure and function. Doppler and Color Flow revealed trace to mild a ortic regurgitation. There is no significant aortic valvular stenosis. MITRAL VALVE The mitral valve is normal in structure and function. There is no mitral valve stenosis. Doppler and Color-flow revealed trace mitral regurgitation. TRICUSPID VALVE The tricuspid valve is normal in structure and function. Doppler and Color Flow revealed trace tricus pid regurgitation. The PA pressure was estimated at 43 mmHg. There is no tricuspid valve stenosis. PULMONIC VALVE Doppler and Color Flow revealed no pulmonic valvular regurgitation. There is no pulmonic valvular benita nosis. GREAT VESSELS The aortic root is normal in size. The IVC is normal in size and collapses >50% with inspiration. PERICARDIAL EFFUSION There is no evidence of significant pericardial effusion. Critical Notification Critical Value: No <Conclusion> The left ventricular systolic function is normal and the ejection fraction is within normal range. EF 65% Septal motion consistent with post-operative state. Signed by : Mitchell Fleming, Electronically Approved : 11/14/2017 10:11:41
--- NOTE | 2017-11-14 11:03 | RAD ---
MR#: [id number] Date of Study: 11/14/2017 Ordering Physician: MITCHELL REGAN, Referring Physician: MITCHELL REGAN, Tech: Ruben Prado MBA, RDMS, RVT, RDCS, RTR APPROVED REPORT Patient Location: OUT-PATIENT Laterality:Bilateral Indications PVD Doppler Spectral Velocity Analysis Right Left pCCA 89/11 cm/spCCA 113/16 cm/s mCCA 69/16 cm/smCCA 83/12 cm/s dCCA 70/13 cm/sdCCA 82/16 cm/s Bulb 71/17 cm/sBulb 67/19 cm/s ECA 107/ cm/sECA 101/ cm/s pICA 82/21 cm/spICA 90/24 cm/s Joy 113/36 cm/smICA 96/27 cm/s dICA 123/55 cm/sdICA 116/36 cm/s Vert. 64/ cm/sVert. 70/ cm/s Subcl. 88/ cm/sSubcl. 124/ cm/s ICA/CCA 1.38ICA/CCA 1.03 Findings Nath scale images of the bilateral carotid arteries reveal mild intimal hyperplasia with bilateral mi ld carotid plaque noted in the bulbs without focal obstruction. Spectral and doppler imaging does not reveal any significant stenosis. Overall 0 to less than 50% benita nosis by velocity criteria. Bilateral vertebral velocities are antegrade. Critical Notification Critical Value: No <Conclusion> No significant carotid disease. Signed by : Mitchell Regan, Electronically Approved : 11/14/2017 11:01:31
--- NOTE | 2017-11-14 13:24 | RAD ---
MR#: [id number] Date of Study: 11/14/2017 Ordering Physician: MITCHELL REGAN, Referring Physician: FINA MARTÍNEZ Tech: RT Yisel (R) (N) APPROVED REPORT Test Type: Pharmacological Stress Nurse/Tech: Ariana Ruby RN Test Indications: CAD Cardiac History: CABG, Stents, HTN, PPM,DM Medications: See Electronic Medical Record Medical History: See Electronic Medical Record Resting ECG: SR Resting Heart Rate: 77 bpm Resting Blood Pressure: 170/99mmHg Pretest Chest Pain: None Nurse/Tech Notes Lungs CTA, S1S2 Consent: The procedure was explained to the patient in lay terms. Informed consent was witnessed. Cyrus eout was entered into [employer]. History and Stress Test performed by Ariana Ruby RN Pharm. Details Pharmacologic stress testing was performed using 0.4mg per 5ml of regadenoson given intravenously ove r 7-10 seconds. Stress Symptoms Nausea, vomiting, no chest pain POST EXERCISE Reason for Termination: Infusion complete Max HR: 116 bpm Max Blood Pressure: 177/95mmHg Blood Pressure response to exercise: Normal blood pressure response during stress. Heart Rate response to exercise: normal response Chest Pain: No. Arrhythmia: No. ST Change: No. INTERPRETATION Stress EKG Conclusion: Baseline EKG showed sinus rhythm with right bundle branch block. Nondiagnostic changes at peak stress. No arrhythmias. Rest: Stress: Viability: Radiopharm.Tc99m YflrlwsltSn14b Sestamibi Vfxa42lMc 33mCi Img Date 11/14/2017 11/14/2017 Inj-Img Seok71lsb. 60min. Rest Admin Site:IV - Right AntecubitalAdministrator:RT Yisel (R)(N) Stress Admin Site: IV - Right AntecubitalAdministrator: RT Anabel (R)(N) STRESS DATA End Diast. Vol.86.0mlLVEDV index BSA52.0ml End Syst. Vol.39.0mlLVESV index BSA23.0ml Myocardial Wndi770.0gEject. Mqewshyp66.0% Stress Scores Regional WT1.00Summed WT21.00 Regional WM0.00Summed WM13.00 LV Perfusion Scintigraphic images showed moderate predominantly fixed defect involving the mid to distal anterior, anterolateral pierre and apical wall consistent with previous myocardial infarction with very small a mount of reversibility consistent with evangelista-infarct ischemia. Wall Motion Apical wall hypokinesis with ejection fraction calculated at 55%. LV Perf. Quant 17 Seg. SSS12.00 17 Seg. SRS18.00 17 Seg. SDS1.00 Stress Defect Extent (% LAD)41.30Rest Defect Extent (% LAD)48.10Rev. Defect Extent (% LAD)0.60 Stress Defect Extent (% LCX) 30.00Rest Defect Extent (% LCX)28.80Rev. Defect Extent (% LCX)21.30 Stress Defect Extent (% RCA)0.00Rest Defect Extent (% RCA)8.90Rev. Defect Extent (% RCA)0.00 Stress Defect Extent (% FABIANO)30.90Rest Defect Extent (% FABIANO)37.60Rev. Defect Extent (% FABIANO)5.70 Conclusion 1. Regadenoson cardioisotope stress test showed moderate infarct involving the mid to distal anterior , anterolateral pierre and the apical wall with very small amount of evangelista-infarct ischemia. 2. Apical wall hypokinesis with ejection fraction calculated at 55%. 3. Low risk for cardiac events. Signed by : Omega Vasquez, Electronically Approved : 11/14/2017 13:23:17
== END | disposition home or self-care (01) ==
LOC: ECHO 07:39
PROVIDERS: ATTEND Internal Medicine Cardiovascular Disease
DX: I25.10 Atherosclerotic heart disease of native coronary artery without angina pectoris (principal); I73.9 Peripheral vascular disease, unspecified; I45.19 Other right bundle-branch block; I65.23 Occlusion and stenosis of bilateral carotid arteries; I35.1 Nonrheumatic aortic (valve) insufficiency; I10 Essential (primary) hypertension; E11.9 Type 2 diabetes mellitus without complications; J45.909 Unspecified asthma, uncomplicated; E78.5 Hyperlipidemia, unspecified; G43.909 Migraine, unspecified, not intractable, without status migrainosus; K21.9 Gastro-esophageal reflux disease without esophagitis; I25.2 Old myocardial infarction; I25.89 Other forms of chronic ischemic heart disease; R94.31 Abnormal electrocardiogram [ECG] [EKG]; Z95.5 Presence of coronary angioplasty implant and graft; Z89.431 Acquired absence of right foot; Z82.49 Family history of ischemic heart disease and other diseases of the circulatory system
CPT/HCPCS: 78452; 93017; 93306; 93880; 96374; 96375; 96376; A9500; J2785

== ENCOUNTER 2017-12-11 19:34 | Emergency (ER) | payer MEDICARE ==
[~2017-12-11] VITALS: Ht 152.4 cm; Wt 71.7 kg
[~2017-12-11 19:34] MED LIST changes: -LOSA50TA6 PO; +LOSA50TA7 PO; -REGADENOSON 0.4 MG/5 ML DISP.SYRIN. IV ONE
[2017-12-11] MEDS ORDERED: predniSONE 20 MG TABLET PO ONE (20:00)
[2017-12-11] MEDS ORDERED: FAMOTIDINE 20 MG TABLET. PO ONE (20:00)
--- NOTE | 2017-12-11 20:32 | PHYS DOC ---
Past Medical History Past Medical History: Diabetes-Type I, GERD, Hypertension Past Surgical History: Other Additional Past Surgical Histo: partial right foot amputation, bone transfusions Alcohol Use: None Drug Use: None Adult General Chief Complaint Chief Complaint: ALLERGIC REACTION HPI HPI Patient is a 72-year-old female presents to the emergency department for evaluation. She states that an hour and a half prior to arrival, she ate some banana bread. She states that soon after eating it she developed hives, and some shortness of breath. She took some liquid Benadryl she thinks about 20 mL of the Benadryl although she is uncertain of the concentration (if this was children's Benadryl, her dose would have been 50 mg). She states that she is feeling significantly better at this time, and the hives have significantly resolved. She denies any pain, dizziness, or lightheadedness. She has no history of banana, or peanut allergies, or other known food allergies. There are no alleviating or exacerbating factors to the patient's symptoms. Review of Systems Review of Systems Constitutional: Denies fever or chills [] Eyes: Denies change in visual acuity, redness, or eye pain [] HENT: Denies nasal congestion or sore throat [] Respiratory: Denies cough or current shortness of breath [] Cardiovascular: No additional information not addressed in HPI [] GI: Denies abdominal pain, nausea, vomiting, bloody stools or diarrhea [] : Denies dysuria or hematuria [] Musculoskeletal: Denies back pain or joint pain [] Integument: Reports itchy hives which have significantly decreased.[] Neurologic: Denies focal weakness or sensory changes, reports mild generalized headache [] Endocrine: Denies polyuria or polydipsia [] All other systems were reviewed and found to be within normal limits, except as documented in this note. Current Medications Current Medications Current Medications Medications (Trade) Dose Ordered Sig/Shabnam Start Time Stop Time Status Last Admin Dose Admin Acetaminophen (Tylenol) 650 mg 1X ONCE 12/11/17 22:00 12/11/17 22:01 DC 12/11/17 22:42 650 MG Clonidine HCl (Catapres) 0.1 mg 1X ONCE 12/11/17 21:15 12/11/17 21:16 DC 12/11/17 21:13 0.1 MG Famotidine (Pepcid) 20 mg 1X ONCE 12/11/17 20:00 12/11/17 20:01 DC 12/11/17 20:25 20 MG Prednisone (Prednisone) 40 mg 1X ONCE 12/11/17 20:00 12/11/17 20:01 DC 12/11/17 20:25 40 MG Allergies Allergies Allergies Coded Allergies Type Severity Reaction Last Updated Verified clindamycin HCl Allergy Severe hives 03/23/13 Yes clindamycin palmitate HCl Allergy Severe hives 03/23/13 Yes clindamycin phosphate Allergy Severe hives 03/23/13 Yes lisinopril Allergy Severe Shortness of Air 03/23/13 Yes Penicillins Allergy Intermediate Hives 03/23/13 Yes docusate Allergy Intermediate 03/18/16 Yes promethazine HCl Allergy Intermediate "Regress to childhood" 03/23/13 Yes Uncoded Allergies Type Severity Reaction Last Updated Verified blue cheese Allergy Unknown 05/20/16 Physical Exam Physical Exam PHYSICAL EXAM: CONSTITUTIONAL: Well developed, well nourished HEAD: normocephalic, atraumatic EENT: PERRL, EOMI. Conjunctivae normal color, sclerae non-icteric; moist mucous membranes. Voice is normal. There is no pharyngeal edema. NECK: Supple, non-tender; no meningismus. LUNGS: Lungs CTA, breathing even and unlabored. Normal air movement. HEART: Regular rate and rhythm, no murmur CHEST: No deformity; non-tender ABDOMEN: The abdomen is soft, and non-tender, no masses or bruits. EXTREM: Normal ROM; no deformity, no calf tenderness. Normal pulses palpable in all extremities. There is no pedal edema. SKIN: There are a few faint urticarial lesions on the upper extremities and trunk. No other rash; no diaphoresis NEURO: Alert; normal speech and cognition; CN's grossly intact; strength grossly intact without focal deficit. BACK: No CVA TTP. Current Patient Data Vital Signs Vital Signs Date Time Temp Pulse Resp B/P (MAP) Pulse Ox O2 Delivery O2 Flow Rate FiO2 12/11/17 21:13 62 245/109 12/11/17 19:35 98.9 16 95 Room Air 98.9 Lab Values Laboratory Tests Test 12/11/17 23:16 White Blood Count 9.4 x10^3/uL (4.0-11.0) Red Blood Count 4.55 x10^6/uL (3.50-5.40) Hemoglobin 14.9 g/dL (12.0-15.5) Hematocrit 42.9 % (36.0-47.0) Mean Corpuscular Volume 94 fL (79-100) Mean Corpuscular Hemoglobin 33 pg (25-35) Mean Corpuscular Hemoglobin Concent 35 g/dL (31-37) Red Cell Distribution Width 12.6 % (11.5-14.5) Platelet Count 157 x10^3/uL (140-400) Neutrophils (%) (Auto) 90 % (31-73) H Lymphocytes (%) (Auto) 5 % (24-48) L Monocytes (%) (Auto) 4 % (0-9) Eosinophils (%) (Auto) 0 % (0-3) Basophils (%) (Auto) 0 % (0-3) Neutrophils # (Auto) 8.5 x10^3uL (1.8-7.7) H Lymphocytes # (Auto) 0.5 x10^3/uL (1.0-4.8) L Monocytes # (Auto) 0.4 x10^3/uL (0.0-1.1) Eosinophils # (Auto) 0.0 x10^3/uL (0.0-0.7) Basophils # (Auto) 0.0 x10^3/uL (0.0-0.2) Segmented Neutrophils % 86 % (35-66) H Band Neutrophils % 3 % (0-9) Lymphocytes % 5 % (24-48) L Monocytes % 5 % (0-10) Eosinophils % 1 % (0-5) Platelet Estimate Adequate (ADEQUATE) Sodium Level 139 mmol/L (136-145) Potassium Level 4.1 mmol/L (3.5-5.1) Chloride Level 101 mmol/L (98-107) Carbon Dioxide Level 27 mmol/L (21-32) Anion Gap 11 (6-14) Blood Urea Nitrogen 13 mg/dL (7-20) Creatinine 0.8 mg/dL (0.6-1.0) Estimated GFR (Cockcroft-Gault) 70.5 Glucose Level 152 mg/dL (70-99) H Calcium Level 9.0 mg/dL (8.5-10.1) Laboratory Tests 12/11/17 23:16 Laboratory Tests 12/11/17 23:16 EKG EKG [] Radiology/Procedures Radiology/Procedures PROCEDURE: CT HEAD WO CONTRAST PQRS Compliance Statement: One or more of the following individualized dose reduction techniques were utilized for this examination: 1. Automated exposure control 2. Adjustment of the mA and/or kV according to patient size 3. Use of iterative reconstruction technique CT head without contrast 12/11/2017 9:50 PM INDICATION: Headache, hypertension COMPARISON: MRI brain March 17, 2016 TECHNIQUE: Multiple axial CT images of the head were obtained from skull base through the vertex without intravenous contrast. FINDINGS: Head: Ventricles, sulci and basal cisterns are within normal limits. Low-attenuation in the periventricular white matter is suggestive of chronic small vessel ischemic changes. There is no hydrocephalus. Nath-white matter differentiation is normal. There is no acute intracranial hemorrhage. There is no mass, mass effect or midline shift. Posterior fossa is normal in appearance. Visualized portions of the orbits are normal. Paranasal sinuses are well aerated. Mastoid air cells are well aerated. Scalp and calvaria are normal. IMPRESSION: No acute intracranial hemorrhage. Electronically signed by: Elvira Neves MD (12/11/2017 10:22 PM) [facility] Course & Med Decision Making Course & Med Decision Making Pertinent Labs and Imaging studies reviewed. (See chart for details) [9:30 PM: The patient's condition remains stable. Her allergy symptoms have abated, but the patient is noted to be significantly hypertensive. She was noted to be hypertensive upon arrival, but with further observation her blood pressure continued to increase. Her current blood pressure is 245/109. She'll be given an antihypertensive. The patient states that she normally does not have significantly elevated blood pressure, and she states that she takes her blood pressure medication faithfully. She states that she took her losartan this evening, prior to coming to the emergency department. She is not complaining of a left-sided headache, which has gradually worsened over the past 2 hours. Imaging and labs and EKG will be obtained due to the hypertensive urgency] 9:55 P patient condition remained stable. Care will be turned over to Dr. Medley at shift change, pending blood pressure management, and test results. Report given. Bebe Disclaimer Bebe Disclaimer This electronic medical record was generated, in whole or in part, using a voice recognition dictation system. Departure Departure Impression: Primary Impression: Allergic reaction Additional Impressions: Hypertension Headache Disposition: 01 HOME, SELF-CARE Condition: IMPROVED Referrals: FERNIE MAJOR MD (PCP) Patient Instructions: Headache, FAQs, Hypertension, Spjq-mk-Ggog, Rash, Easy-to -Read Scripts Clonidine Hcl (CLONIDINE HCL) 0.1 Mg Tablet 0.1 MG PO BID PRN for HYPERTENSION, SEE COMMENTS, #14 TAB Take for systolic (upper) blood pressure > 185 or for diastolic (lower) blood pressure > 110 Prov: JENN MEDLEY DO 12/11/17 Prednisone (PREDNISONE) 20 Mg Tablet 2 TAB PO DAILY for 4 Days, #8 TAB Take for next 4 days until gone. Prov: JENN MEDLEY DO 12/11/17 Problem Qualifiers Primary Impression: Allergic reaction Encounter type: initial encounter Qualified Codes: T78.40XA - Allergy, unspecified, initial encounter Additional Impressions: Hypertension Hypertension type: unspecified Qualified Codes: I10 - Essential (primary) hypertension Headache Headache type: unspecified Headache chronicity pattern: unspecified pattern Intractability: not intractable Qualified Codes: R51 - Headache HAYDEN LEAVITT MD Dec 11, 2017 20:32 JENN MEDLEY DO Dec 11, 2017 22:52
[2017-12-11] MEDS ORDERED: cloNIDine HCL 0.1 MG TABLET PO ONE (21:15)
[2017-12-11] MEDS ORDERED: ACETAMINOPHEN 325 MG TABLET. PO ONE (22:00)
--- NOTE | 2017-12-11 22:26 | RAD ---
RS Compliance Statement: One or more of the following individualized dose reduction techniques were utilized for this examination: 1. Automated exposure control 2. Adjustment of the mA and/or kV according to patient size 3. Use of iterative reconstruction technique CT head without contrast 12/11/2017 9:50 PM INDICATION: Headache, hypertension COMPARISON: MRI brain March 17, 2016 TECHNIQUE: Multiple axial CT images of the head were obtained from skull base through the vertex without intravenous contrast. FINDINGS: Head: Ventricles, sulci and basal cisterns are within normal limits. Low-attenuation in the periventricular white matter is suggestive of chronic small vessel ischemic changes. There is no hydrocephalus. Nath-white matter differentiation is normal. There is no acute intracranial hemorrhage. There is no mass, mass effect or midline shift. Posterior fossa is normal in appearance. Visualized portions of the orbits are normal. Paranasal sinuses are well aerated. Mastoid air cells are well aerated. Scalp and calvaria are normal. IMPRESSION: No acute intracranial hemorrhage. Electronically signed by: Elvira Neves MD (12/11/2017 10:22 PM) [facility]
[2017-12-11 23:28] LABS: BASO % 0 % (0-3); EOS % 0 % (0-3); HEMATOCRIT 42.9 % (36.0-47.0); HEMOGLOBIN 14.9 g/dL (12.0-15.5); LYMPH # 0.5 x10^3/uL (1.0-4.8); LYMPH % 5 % (24-48); MEAN CORPUSCULAR HEMOGLOBIN 33 pg (25-35); MEAN CORPUSCULAR HGB CONC 35 g/dL (31-37); MEAN CORPUSCULAR VOLUME 94 fL (79-100); MONO # 0.4 x10^3/uL (0.0-1.1); MONO % 4 % (0-9); NEUT # 8.5 x10^3uL (1.8-7.7); NEUT % 90 % (31-73); PLATELET COUNT 157 x10^3/uL (140-400); RED BLOOD COUNT 4.55 x10^6/uL (3.50-5.40); RED CELL DISTRIBUTION WIDTH 12.6 % (11.5-14.5); WHITE BLOOD COUNT 9.4 x10^3/uL (4.0-11.0)
[2017-12-11 23:44] LABS: CREATININE 0.8 mg/dL (0.6-1.0); GFR 70.5; POTASSIUM 4.1 mmol/L (3.5-5.1)
[2017-12-11 23:46] LABS: % BANDS 3 % (0-9); % EOS 1 % (0-5); % LYMPHS 5 % (24-48); % MONOS 5 % (0-10); % SEGS 86 % (35-66); PLT ESTIMATE ADEQUATE (ADEQUATE)
[2017-12-11] MEDS ORDERED: CLON0.1T PO (23:52)
[2017-12-11] MEDS ORDERED: PRED20TA PO (23:52)
[2017-12-11 23:58] VITALS: BP 167/75
== END 2017-12-12 00:05 | disposition home or self-care (01) ==
LOC: ER 19:34
DX: T78.40XA Allergy, unspecified, initial encounter (principal); I10 Essential (primary) hypertension; R51 Headache; K21.9 Gastro-esophageal reflux disease without esophagitis; E10.9 Type 1 diabetes mellitus without complications; Z88.1 Allergy status to other antibiotic agents; Z88.0 Allergy status to penicillin; Z88.8 Allergy status to other drugs, medicaments and biological substances; X58.XXXA Exposure to other specified factors, initial encounter
CPT/HCPCS: 36415; 70450; 80048; 84484; 85007; 85025; 99285; J7512

== ENCOUNTER → 2017-12-26 | Outpatient (CLI) | payer MEDICARE ==
[2017-12-11 23:58] VITALS: BP 167/75
[~2017-12-26] MED LIST changes: +CLON0.1T PO; +PRED20TA PO
--- NOTE | 2018-01-04 09:07 | SLEEP ---
DATE OF STUDY: 12/26/2017 ATTENDING PHYSICIAN: Dr. Yeager. The patient is 72 years old who weighs 157 pounds with a BMI of 31. The patient's Vail score was 7. The patient has history of sleep apnea in 2002. At that time, she did not use CPAP and had undergone gastric bypass surgery and lost about 150 pounds. During the night study, the patient spent 420 minutes in bed and slept for 333 minutes with a sleep efficiency of 79%. Sleep latency was 51 minutes, which is prolonged, with a REM latency of 106 minutes. Overall, sleep architecture showed normal stage 1 sleep, slightly reduced stage 2 sleep, increased slow wave sleep and normal REM sleep. During the night of the study, the patient had 3 obstructive apneas, 1 mixed and no central apneas, and 54 hypopneas. The patient's apnea hypopnea index was 11 per hour with a supine index of 12 per hour and a REM index of 48 per hour. EKG monitoring revealed normal sinus rhythm. There were few episodes of sinus tachycardia. No sustained arrhythmias were observed. Nocturnal oximetry study revealed an average oxygen saturation of 94% with the lowest of 83%. 4.5 minutes were spent in oxygen saturation less than 90%. PLMS were not seen. Due to low AHI, the patient did not meet the split night criteria for CPAP initiation. IMPRESSION: 1. Mild sleep apnea-hypopnea syndrome with worsening during REM sleep. Total AHI 11 per hour with a REM AHI of 48 per hour. 2. No clinically significant periodic limb movements of sleep. 3. No clinically significant nocturnal hypoxia. RECOMMENDATIONS: 1. The patient's sleep apnea is mild with worsening during REM sleep. If the patient is clinically symptomatic, then consider treatment with either oral appliance as recommended by the dentist versus a trial of CPAP titration. 2. Weight loss is advised. 3. Avoid ADMINISTRATIVE COORDINATOR depressants. 4. Caution regarding driving until symptoms of sleep apnea resolve with the above recommendations. VI REDD MD DR: AYANNA/bhanu JOB#: [id number] / [id number] FERNIE Lundy MD
== END | disposition home or self-care (01) ==
LOC: SLPLAB 17:05
PROVIDERS: ATTEND Family Medicine
DX: G47.33 Obstructive sleep apnea (adult) (pediatric) (principal)
CPT/HCPCS: 95810

== ENCOUNTER → 2018-07-03 | Outpatient (CLI) | payer MEDICARE ==
[~2018-07-03] MED LIST changes: +LOSA-73 PO; -LOSA50TA2 PO; -LOSA50TA7 PO; +TRAZ-118 PO; -TRAZ-85 PO
--- NOTE | 2018-07-04 16:19 | RAD ---
DATE: 07/03/2018 EXAM: MAMMO TRAVIS SCREENING BILATERAL HISTORY: Screening COMPARISON: 01/12/2016, 01/11/2014 mammographic exams This study was interpreted with the benefit of Computerized Aided Detection (CAD). Breast Density: SCATTERED The breast parenchyma shows scattered fibroglandular densities. Breast parenchyma level B. FINDINGS: Left axillary level pacemaker device noted. There is no dominant mass or distortion. Benign minimal calcification present. No suspicious calcification cluster. IMPRESSION: Benign findings. BI-RADS CATEGORY: 1 NEGATIVE RECOMMENDED FOLLOW-UP: 12M 12 MONTH FOLLOW-UP PQRS compliance statement: Patient information was entered into a reminder system with a target due date in one year for the next mammogram. Mammography is a sensitive method for finding small breast cancers, but it does not detect them all and is not a substitute for careful clinical examination. A negative mammogram does not negate a clinically suspicious finding and should not result in delay in biopsying a clinically suspicious abnormality. "Our facility is accredited by the [employer] Mammography Program."
== END | disposition home or self-care (01) ==
LOC: MAMMO 14:18
PROVIDERS: ATTEND Family Medicine
DX: Z12.31 Encounter for screening mammogram for malignant neoplasm of breast (principal)
CPT/HCPCS: 77063; 77067

== ENCOUNTER 2018-11-06 21:47 | Inpatient (IN) | payer MEDICARE ==
[~2018-11-06] VITALS: Ht 147.3 cm; Wt 69.0 kg
[2018-11-06] MEDS ORDERED: ONDANSETRON ODT 4 MG TAB.RAPDIS. PO ONE (22:45)
[2018-11-06] MEDS ORDERED: HYDROcodone/APAP 5/325MG 1 TAB TABLET PO ONE (22:45)
--- NOTE | 2018-11-06 22:47 | PHYS DOC ---
Past Medical History Past Medical History: CAD, High Cholesterol, Heart Disease, Hypertension Past Surgical History: Coronary Bypass Surgery Additional Past Surgical Histo: ppm Alcohol Use: None Drug Use: None Adult General Chief Complaint Chief Complaint: MECHANICAL FALL HPI HPI Patient is a 73 year old female who presents with states fell at 1700 tonight. Was walking from her living room into her dining room when she fell she can't remember if she tripped or how or why she fell. Patient states she became nauseated, diaphoretic and shortness of air but did not lose consciousness or hit her head. Patient complains of cervical, thoracic, lumbar pain, bilateral hip pain, left forearm and wrist pain, bilateral femurs. Patient rates her pain a 10 out of 10 and states is sharp and aching. Patient has a history of asthma, pacemaker, heart attack, CAD, hypertension, high cholesterol. Review of Systems Review of Systems Constitutional: Denies fever or chills [] Eyes: Denies change in visual acuity, redness, or eye pain [] HENT: Denies nasal congestion or sore throat [] Respiratory: Denies cough. +shortness of breath [] Cardiovascular: No additional information not addressed in HPI [] GI: Denies abdominal pain. + nausea, denies vomiting, bloody stools or diarrhea [] : Denies dysuria or hematuria [] Musculoskeletal: Bilateral femur, back pain or bilateral shoulders, left forearm , left wrist joint pain [] Integument: Denies rash or skin lesions [] Neurologic: Denies headache, focal weakness or sensory changes [] Endocrine: Denies polyuria or polydipsia [] All other systems were reviewed and found to be within normal limits, except as documented in this note. Current Medications Current Medications Current Medications Medications (Trade) Dose Ordered Sig/Shabnam Start Time Stop Time Status Last Admin Dose Admin Acetaminophen/ Hydrocodone Bitart (Lortab 5/325) 1 tab 1X ONCE 11/06/18 22:45 11/06/18 22:46 DC 11/06/18 22:50 1 TAB Ondansetron HCl (Zofran Odt) 4 mg 1X ONCE 11/06/18 22:45 11/06/18 22:46 DC 11/06/18 22:50 4 MG Allergies Allergies Allergies Coded Allergies Type Severity Reaction Last Updated Verified clindamycin HCl Allergy Severe hives 12/27/13 Yes clindamycin palmitate HCl Allergy Severe hives 03/23/13 Yes clindamycin phosphate Allergy Severe hives 03/23/13 Yes lisinopril Allergy Severe Shortness of Air 03/23/13 Yes Penicillins Allergy Intermediate Hives 03/23/13 Yes docusate Allergy Intermediate 03/18/16 Yes promethazine HCl Allergy Intermediate "Regress to childhood" 03/23/13 Yes Uncoded Allergies Type Severity Reaction Last Updated Verified blue cheese Allergy Unknown 05/20/16 Physical Exam Physical Exam Constitutional: Well developed, well nourished, no acute distress, non-toxic appearance. [] HENT: Normocephalic, atraumatic, bilateral external ears normal, oropharynx moist, no oral exudates, nose normal. [] Eyes: PERRLA, EOMI, conjunctiva normal, no discharge. [] Neck: Normal range of motion, no tenderness, supple, no stridor. [] Cardiovascular:Heart rate regular rhythm, no murmur [] Lungs & Thorax: Bilateral breath sounds clear to auscultation [] Abdomen: Bowel sounds normal, soft, no tenderness, no masses, no pulsatile masses. [] Skin: Warm, dry, no erythema, no rash. [] Back: Focal bony cervical, thoracic, lumbar tenderness, no CVA tenderness. [] Extremities: Left wrist, left forearm, bilateral femurs, bilateral shoulders, bilateral hips tenderness, no cyanosis, no clubbing, bilateral shoulder and left wrist not ROM intact, lower forearm and wrist 2+ edema. [] Neurologic: Alert and oriented X 3, normal motor function, normal sensory function, no focal deficits noted. [] Psychologic: Affect normal, judgement normal, mood normal. [] Current Patient Data Vital Signs Vital Signs Date Time Temp Pulse Resp B/P (MAP) Pulse Ox O2 Delivery O2 Flow Rate FiO2 11/06/18 22:50 20 97 11/06/18 22:10 99.9 84 199/99 (132) Room Air 99.9 Lab Values Laboratory Tests Test 11/06/18 23:55 White Blood Count 10.3 x10^3/uL (4.0-11.0) Red Blood Count 4.40 x10^6/uL (3.50-5.40) Hemoglobin 14.5 g/dL (12.0-15.5) Hematocrit 41.4 % (36.0-47.0) Mean Corpuscular Volume 94 fL (79-100) Mean Corpuscular Hemoglobin 33 pg (25-35) Mean Corpuscular Hemoglobin Concent 35 g/dL (31-37) Red Cell Distribution Width 12.7 % (11.5-14.5) Platelet Count 167 x10^3/uL (140-400) Neutrophils (%) (Auto) 86 % (31-73) H Lymphocytes (%) (Auto) 6 % (24-48) L Monocytes (%) (Auto) 7 % (0-9) Eosinophils (%) (Auto) 0 % (0-3) Basophils (%) (Auto) 0 % (0-3) Neutrophils # (Auto) 8.9 x10^3/uL (1.8-7.7) H Lymphocytes # (Auto) 0.7 x10^3/uL (1.0-4.8) L Monocytes # (Auto) 0.7 x10^3/uL (0.0-1.1) Eosinophils # (Auto) 0.0 x10^3/uL (0.0-0.7) Basophils # (Auto) 0.0 x10^3/uL (0.0-0.2) Platelet Estimate Pending Urine Collection Type Unknown Urine Color Yellow Urine Clarity Clear Urine pH 6.5 Urine Specific [place] 1.010 Urine Protein Negative mg/dL (NEG-TRACE) Urine Glucose (UA) Negative mg/dL (NEG) Urine Ketones (Stick) Negative mg/dL (NEG) Urine Blood Negative (NEG) Urine Nitrite Negative (NEG) Urine Bilirubin Negative (NEG) Urine Urobilinogen Dipstick 1.0 mg/dL (0.2 mg/dL) Urine Leukocyte Esterase Negative (NEG) Urine RBC Occ /HPF (0-2) Urine WBC Occ /HPF (0-4) Urine Squamous Epithelial Cells Few /LPF Urine Bacteria 0 /HPF (0-FEW) Urine Mucus Slight /LPF Sodium Level 142 mmol/L (136-145) Potassium Level 4.3 mmol/L (3.5-5.1) Chloride Level 103 mmol/L (98-107) Carbon Dioxide Level 29 mmol/L (21-32) Anion Gap 10 (6-14) Blood Urea Nitrogen 16 mg/dL (7-20) Creatinine 0.9 mg/dL (0.6-1.0) Estimated GFR (Cockcroft-Gault) 61.4 BUN/Creatinine Ratio 18 (6-20) Glucose Level 137 mg/dL (70-99) H Calcium Level 9.5 mg/dL (8.5-10.1) Total Bilirubin 1.0 mg/dL (0.2-1.0) Aspartate Amino Transferase (AST) 21 U/L (15-37) Alanine Aminotransferase (ALT) 26 U/L (14-59) Alkaline Phosphatase 77 U/L (46-116) Troponin I Quantitative < 0.017 ng/mL (0.000-0.055) Total Protein 7.6 g/dL (6.4-8.2) Albumin 4.2 g/dL (3.4-5.0) Albumin/Globulin Ratio 1.2 (1.0-1.7) Laboratory Tests 11/06/18 23:55 Laboratory Tests 11/06/18 23:55 EKG EKG Sinus Rhythm, RBBB, and no STEMI Interpretation Time: [address] Hale Radiology/Procedures Radiology/Procedures [] Impressions: [facility] [address] [place] [address] IMAGING REPORT Signed PATIENT: KYLIE CHAPA ACCOUNT: [id number] : 1945 LOCATION: ER AGE: 73 SEX: F EXAM STATUS: REG ER ORD. PHYSICIAN: LANE MAKI APRN REASON: fall, pain PROCEDURE: CT HEAD AND CERVICAL SPINE WO Exam: CT head and cervical spine INDICATION: Fall TECHNIQUE: Sequential axial images through the head and cervical spine were obtained without the administration of IV contrast. Comparisons: December 11, 2017 FINDINGS: Head: No focal parenchymal lesion or hemorrhage is identified. There is no midline shift or sulcal effacement. Patchy hypodensity within the periventricular white matter which is similar when compared to the prior exam. No acute vascular territory infarction is identified. The ventricular system is within normal limits without compression hydrocephalus. The basal cisterns are well maintained. The visualized portions of the paranasal sinuses and mastoid air cells are well-pneumatized. Chronic medial blowout fracture of the left orbit. No acute fractures. Cervical spine: Vertebral body heights and alignment are well-maintained. Fracture through the cervical spine is not identified. Degenerative disc disease greatest at C3-C4, C5-C6 and C6-C7 mild bilateral facet arthropathy is also noted. Broad-based disc osteophyte complex causes mild bilateral neural foraminal stenosis at C5-C6. Visualized paraspinal soft tissues are unremarkable. IMPRESSION: 1. No acute intracranial abnormality. 2. Negative CT C-spine for acute traumatic injury. Exposure: One or more of the following in the visualized dose reduction techniques were utilized for this examination: 1. Automated exposure control 2. Adjustment of the MA and/or KV according to patient size Use of iterative of reconstructive technique Electronically signed by: Elvie Shelton MD (11/06/2018 11:19 PM) [facility] DICTATED and SIGNED BY: ELVIE SHELTON MD DATE: 11/06/18 2319 [facility] [address] [place] [address] IMAGING REPORT Signed PATIENT: KYLIE CHAPA ACCOUNT: [id number] : 1945 LOCATION: ER AGE: 73 SEX: F EXAM STATUS: REG ER ORD. PHYSICIAN: LANE MAKI APRN REASON: fall, pain PROCEDURE: CT LUMBAR SPINE WO CONTRAST Exam: CT of the thoracic lumbar spine and pelvis without contrast INDICATION: Fall TECHNIQUE: Sequential axial images through the thoracic and lumbar spine and pelvis obtained without IV contrast. Sagittal and coronal reformatted images were reconstructed from the axial data and reviewed. Comparisons: None FINDINGS: Thoracic spine: Vertebral body heights and alignment are well-maintained. Fracture through the thoracic spine is not identified. No significant spondylotic changes in the thoracic spine. Linear bandlike notch opacity at the left lung base favored to represent atelectasis. Lumbar spine: Vertebral body heights are well-maintained. Grade 1 anterolisthesis of L5 on S1. Bilateral pars interarticularis defect at L5. No acute fracture identified within the lumbar spine. Mild broad-based disc bulge at L2-L3, L3-L4 and L4-L5 without significant neural foraminal or spinal canal stenosis. Visualized paraspinal soft tissues are unremarkable. Pelvis: Bone mineralization is normal. No acute fracture. Joint spaces are well-maintained. Mild diverticulosis of the sigmoid colon. Otherwise, visualized intrapelvic structures are unremarkable. IMPRESSION: 1. Negative CT thoracic spine for acute traumatic injury. 2. Negative CT lumbar spine for acute traumatic injury. 3. No acute osseous abnormality identified of the pelvis. Exposure: One or more of the following in the visualized dose reduction techniques were utilized for this examination: 1. Automated exposure control 2. Adjustment of the MA and/or KV according to patient size 3. Use of iterative of reconstructive technique Electronically signed by: Elvie Shelton MD (11/06/2018 11:26 PM) [facility] DICTATED and SIGNED BY: ELVIE SHELTON MD DATE: 11/06/18 0152 Course & Med Decision Making Course & Med Decision Making Patient is a 73 year old female who presents with states fell at 1700 tonight. Was walking from her living room into her dining room when she fell she can't remember if she tripped or how or why she fell. Patient states she became nauseated, diaphoretic and shortness of air but did not lose consciousness or hit her head. Patient complains of cervical, thoracic, lumbar pain, bilateral hip pain, left forearm and wrist pain, bilateral femurs. Patient rates her pain a 10 out of 10 and states is sharp and aching. Patient has a history of asthma, pacemaker, heart attack, CAD, hypertension, high cholesterol. Patient states she landed on her buttocks. Alert and oriented. Speaks in full clear sentences. Skin is pink warm and dry. Patients left forearm and wrist are 2+ swelling with some bruising and looks slightly deformed. Patient can wiggle her fingers and make a loose fist there is pain. There is pain with palpation to the left wrist, left forearm, left elbow, left humerus, left shoulder. Patient also has pain with palpation to right shoulder, right hip, right femur. Patient has pain with palpation to left hip, left femur. Patient has pain with palpation to the cervical spine, thoracic spine, lumbar spine is focal. Patient denies head pain or dizziness or visual changes. Patient denies any numbness or tingling at this time. Patient states after she fell she did get up but is very painful to walk. Left wrist range of motion is not intact. Abdomen is soft and nontender. I palpated over her ribs and chest and there is no pain or crepitus felt. Patient denies hitting her head or her face and there is no bruising or bumps or pain with palpation. There are no abrasions or lacerations to the patient's body. Patient is able to move her legs but is very painful. Patient has limited range of motion in bilateral shoulders but states that is normal. Patient has Intact range of motion in bilateral knees. Bilateral popliteal radial pulses are present. Cap refill less than 3 seconds. Has patient has a heart history I am doing a chest pain workup. Patient denies chest pain but states that she did get short of air during falling and diaphoresis and nausea. No extremity swelling seen. All CT's show no acute findings. Xrays are read by Dr Hale and show no obvious acute findings. Patient to be admitted for a cardiac rule out due to her history and symptoms prior/ with fall. Dragon Disclaimer Dragon Disclaimer This electronic medical record was generated, in whole or in part, using a voice recognition dictation system. The HEART Score for CP Pts HEART Score for Chest Pain: HEART Score for Chest Pain Response (Comments) Value History Slighlty/Non-Suspicious 0 ECG Normal 0 Age > 65 2 Risk Factors >3 Risk Factors or Hx CAD 2 Troponin < Normal Limit 0 Total 4 Risk Factors: Risk Factors: DM, Current or recent (<one month) smoker, HTN, HLP, family history of CAD, obesity. Risk Scores: Score 0 - 3: 2.5% MACE over next 6 weeks - Discharge Home Score 4 - 6: 20.3% MACE over next 6 weeks - Admit for Clinical Observation Score 7 - 10: 72.7% MACE over next 6 weeks - Early Invasive Strategies Departure Departure Impression: Primary Impression: Shortness of breath Additional Impression: Fall Disposition: ADMITTED INPATIENT Admitting Physician: HIMMigdalia Condition: STABLE Referrals: FERNIE MAJOR MD (PCP) Problem Qualifiers Additional Impression: Fall Encounter type: initial encounter Qualified Codes: W19.XXXA - Unspecified fall, initial encounter GLYNNLANE M PER DIEM INTERPRETER Nov 06, 2018 22:47
--- NOTE | 2018-11-06 23:21 | RAD ---
Exam: CT head and cervical spine INDICATION: Fall TECHNIQUE: Sequential axial images through the head and cervical spine were obtained without the administration of IV contrast. Comparisons: December 11, 2017 FINDINGS: Head: No focal parenchymal lesion or hemorrhage is identified. There is no midline shift or sulcal effacement. Patchy hypodensity within the periventricular white matter which is similar when compared to the prior exam. No acute vascular territory infarction is identified. The ventricular system is within normal limits without compression hydrocephalus. The basal cisterns are well maintained. The visualized portions of the paranasal sinuses and mastoid air cells are well-pneumatized. Chronic medial blowout fracture of the left orbit. No acute fractures. Cervical spine: Vertebral body heights and alignment are well-maintained. Fracture through the cervical spine is not identified. Degenerative disc disease greatest at C3-C4, C5-C6 and C6-C7 mild bilateral facet arthropathy is also noted. Broad-based disc osteophyte complex causes mild bilateral neural foraminal stenosis at C5-C6. Visualized paraspinal soft tissues are unremarkable. IMPRESSION: 1. No acute intracranial abnormality. 2. Negative CT C-spine for acute traumatic injury. Exposure: One or more of the following in the visualized dose reduction techniques were utilized for this examination: 1. Automated exposure control 2. Adjustment of the MA and/or KV according to patient size Use of iterative of reconstructive technique Electronically signed by: Elvie Armendariz MD (11/06/2018 11:19 PM) [facility]
--- NOTE | 2018-11-06 23:29 | RAD ---
Exam: CT of the thoracic lumbar spine and pelvis without contrast INDICATION: Fall TECHNIQUE: Sequential axial images through the thoracic and lumbar spine and pelvis obtained without IV contrast. Sagittal and coronal reformatted images were reconstructed from the axial data and reviewed. Comparisons: None FINDINGS: Thoracic spine: Vertebral body heights and alignment are well-maintained. Fracture through the thoracic spine is not identified. No significant spondylotic changes in the thoracic spine. Linear bandlike notch opacity at the left lung base favored to represent atelectasis. Lumbar spine: Vertebral body heights are well-maintained. Grade 1 anterolisthesis of L5 on S1. Bilateral pars interarticularis defect at L5. No acute fracture identified within the lumbar spine. Mild broad-based disc bulge at L2-L3, L3-L4 and L4-L5 without significant neural foraminal or spinal canal stenosis. Visualized paraspinal soft tissues are unremarkable. Pelvis: Bone mineralization is normal. No acute fracture. Joint spaces are well-maintained. Mild diverticulosis of the sigmoid colon. Otherwise, visualized intrapelvic structures are unremarkable. IMPRESSION: 1. Negative CT thoracic spine for acute traumatic injury. 2. Negative CT lumbar spine for acute traumatic injury. 3. No acute osseous abnormality identified of the pelvis. Exposure: One or more of the following in the visualized dose reduction techniques were utilized for this examination: 1. Automated exposure control 2. Adjustment of the MA and/or KV according to patient size 3. Use of iterative of reconstructive technique Electronically signed by: Elvie Armendariz MD (11/06/2018 11:26 PM) [facility]
[2018-11-07] VITALS (11 sets, daily range): BP systolic 130–208; BP diastolic 62–104
[2018-11-07 00:05] LABS: BASO % 0 % (0-3); EOS % 0 % (0-3); HEMATOCRIT 41.4 % (36.0-47.0); HEMOGLOBIN 14.5 g/dL (12.0-15.5); LYMPH # 0.7 x10^3/uL (1.0-4.8); LYMPH % 6 % (24-48); MEAN CORPUSCULAR HEMOGLOBIN 33 pg (25-35); MEAN CORPUSCULAR HGB CONC 35 g/dL (31-37); MEAN CORPUSCULAR VOLUME 94 fL (79-100); MONO # 0.7 x10^3/uL (0.0-1.1); MONO % 7 % (0-9); NEUT # 8.9 x10^3/uL (1.8-7.7); NEUT % 86 % (31-73); PLATELET COUNT 167 x10^3/uL (140-400); RED CELL DISTRIBUTION WIDTH 12.7 % (11.5-14.5); WHITE BLOOD COUNT 10.3 x10^3/uL (4.0-11.0)
[2018-11-07 00:12] LABS: BILIRUBIN,URINE NEGATIVE (NEG); CLARITY,URINE CLEAR; COLOR,URINE YELLOW; NITRITE,URINE NEGATIVE (NEG); PH,URINE 6.5; PROTEIN,URINE NEGATIVE (NEG-TRACE)
[2018-11-07 00:18] LABS: CALCIUM 9.5 mg/dL (8.5-10.1); CREATININE 0.9 mg/dL (0.6-1.0); GFR 61.4; POTASSIUM 4.3 mmol/L (3.5-5.1)
[2018-11-07 00:21] LABS: BACTERIA,URINE 0 /HPF (0-FEW); RBC,URINE OCC /HPF (0-2); SQUAMOUS EPITHELIAL CELL,UR FEW /LPF; WBC,URINE OCC /HPF (0-4)
[2018-11-07 00:29] LABS: ALBUMIN 4.2 g/dL (3.4-5.0); ALBUMIN/GLOBULIN RATIO 1.2 (1.0-1.7); TOTAL PROTEIN 7.6 g/dL (6.4-8.2)
[2018-11-07] MEDS ORDERED: ACETAMINOPHEN 325 MG TABLET. PO PRN (00:30)
[2018-11-07] MEDS ORDERED: ONDANSETRON PF 4 MG/2 ML VIAL. IV PRN ×2 (00:30→09:30)
[2018-11-07] MEDS: fentaNYL PF VIAL 100 MCG/2 ML VIAL IV PRN ×4 (00:46→09:51)
--- NOTE | 2018-11-07 00:53 | RAD ---
Two-view left forearm, 2 views left humerus and three-view bilateral shoulder dated 11/06/2018. No comparison available. CLINICAL INDICATION: Pain after fall. FINDINGS: 2 views of left forearm show normal bony alignment. No displaced fracture. There is diffuse soft tissue swelling. Mild degenerative change at the radiocarpal joint. 2 views left humerus show normal bony alignment. Intact humeral shaft. No displaced fracture. No periostitis or bone destruction. 3 views left shoulder show normal bony alignment. No displaced fracture. Mild hypertrophic change at the AC joint. No acute osseous or articular abnormality. 3 views of the right shoulder show normal bony alignment. No displaced fracture. No acute osseous or articular abnormality. Mild hypertrophic change of the AC joint. IMPRESSION: No acute radiographic abnormality. Degenerative changes as described. Electronically signed by: Octavio Arguello MD (11/07/2018 12:50 AM) [facility]
--- NOTE | 2018-11-07 00:53 | RAD ---
Two-view left forearm, 2 views left humerus and three-view bilateral shoulder dated 11/06/2018. No comparison available. CLINICAL INDICATION: Pain after fall. FINDINGS: 2 views of left forearm show normal bony alignment. No displaced fracture. There is diffuse soft tissue swelling. Mild degenerative change at the radiocarpal joint. 2 views left humerus show normal bony alignment. Intact humeral shaft. No displaced fracture. No periostitis or bone destruction. 3 views left shoulder show normal bony alignment. No displaced fracture. Mild hypertrophic change at the AC joint. No acute osseous or articular abnormality. 3 views of the right shoulder show normal bony alignment. No displaced fracture. No acute osseous or articular abnormality. Mild hypertrophic change of the AC joint. IMPRESSION: No acute radiographic abnormality. Degenerative changes as described. Electronically signed by: Octavio rAguello MD (11/07/2018 12:50 AM) [facility]
--- NOTE | 2018-11-07 00:54 | RAD ---
Two-view bilateral femur dated 11/06/2018. No comparison available. CLINICAL INDICATION: Pain after injury. FINDINGS: 2 views bilateral femur show normal bony alignment. No displaced fracture. Mild degenerative change at the left knee joint with mild degenerative change of the bilateral hip joint. No periostitis or bone destruction. IMPRESSION: No acute bony abnormality. Electronically signed by: Octavio Arguello MD (11/07/2018 12:51 AM) [facility]
--- NOTE | 2018-11-07 00:55 | RAD ---
Single view chest dated 11/06/2018. Comparison made to 05/21/2016. CLINICAL INDICATION: Shortness of breath. FINDINGS: Single supine portable exam performed. Heart and mediastinal contours are stable. Patient is status post median sternotomy. Dual lead left subclavian pacer in place, unchanged. Lungs are hypoinflated but otherwise clear. No consolidation or pleural effusion. No pneumothorax. IMPRESSION: No acute radiographic abnormality. Stable findings compared to 05/21/2016. Electronically signed by: Octavio Arguello MD (11/07/2018 12:52 AM) [facility]
[2018-11-07] MEDS ORDERED: cloNIDine HCL 0.1 MG TABLET PO ONE (01:45)
[2018-11-07] MEDS ORDERED: ASPI-630 PO (02:43)
[2018-11-07 04:49] LABS: % BANDS 1 % (0-9); % LYMPHS 6 % (24-48); % MONOS 5 % (0-10); % SEGS 88 % (35-66); PLT ESTIMATE ADEQUATE (ADEQUATE)
--- NOTE | 2018-11-07 05:00 | EKG ---
[facility] [address] [place] [address] Test Date: 2018-11-06 Test Time: 23:45:13 Pat Name: KYLIE CHAPA Department: Room: 258 1 Gender: F Meterman: : 1945 Requested By: LANE MAKI Order Number: [id number] Reading MD: Librado Fleming MD Measurements Intervals Accord Rate: 86 P: 63 NH: 208 QRS: -36 QRSD: 122 T: 73 QT: 378 QTc: 455 Interpretive Statements SINUS RHYTHM RBBB Electronically Signed On 11-07-2018 12:15:33 CDT by Librado Fleming MD
[2018-11-07] MEDS ORDERED: traMADol 50 MG TABLET PO PRN ×2 (09:30→15:30)
[2018-11-07] MEDS ORDERED: cloNIDine HCL 0.1 MG TABLET PO PRN (09:30)
[2018-11-07] MEDS ORDERED: NITROGLYCERIN SUBLINGUAL 0.4 MG BOTTLE OF 25. SL PRN (09:30)
[2018-11-07] MEDS: DULoxetine HCL 30 MG CAPSULE.DR PO SCH ×2 (09:30→21:33)
[2018-11-07] MEDS ORDERED: ALBUTEROL SULFATE 2.5 MG/3 ML NEBU. NEB PRN (09:45)
[2018-11-07] MEDS: LOSARTAN POTASSIUM 50 MG TABLET. PO SCH (09:50)
[2018-11-07] MEDS: ASPIRIN CHEWABLE 81 MG TABLET. PO SCH (09:50)
[2018-11-07] MEDS ORDERED: TOPIRAMATE 100 MG TABLET. PO SCH (10:00)
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
--- NOTE | 2018-11-07 11:58 | NUR ---
SS following for discharge planning. SS reviewed pt chart. Pt is from home and is currently requiring oxygen. No discharge needs noted at this time. SS will continue to follow for discharge planning.
--- NOTE | 2018-11-07 12:08 | PDOC1 ---
History and Physical Date of Admission Date of Admission DATE: 11/07/18 TIME: 12:04 Identification/Chief Complaint Chief Complaint fall, left wrist hurts Source Source: Caregiver, Chart review, Patient History of Present Illness History of Present Illness 73 white fem,sulema, mechanical fall at home, cant relay full details, no LOC or head trauma, MAX scans neg for fx - just DJD everywhere but she is most tender on left wrist and limited flexion, Will apply splint, ICE and check wrist xray, CArds consulted - lots of cardiac hx. NO CP,. EKG reassuring, labs ok, Will check Vit D too. Past Medical History Cardiovascular: CAD, HTN, Hyperlipidemia, Other Pulmonary: Asthma CENTRAL NERVOUS SYSTEM: Migraine GI: GERD, Other Heme/Onc: No pertinent hx Hepatobiliary: No pertinent hx Psych: No pertinent hx Musculoskeletal: Osteoarthritis, Other Rheumatologic: Fibromyalgia Infectious disease: No pertinent hx Renal/: No pertinent hx Endocrine: Diabetes Past Surgical History Past Surgical History: Pacemaker, CABG, Hernia Repair, Tonsillectomy, Other Family History Family History: Coronary Artery Disease, Diabetes Social History Smoke: No ALCOHOL: none Drugs: None Current Problem List Problem List Problems Medical Problems: (1) Fall Status: Acute (2) Shortness of breath Status: Acute Current Medications Current Medications Current Medications Ondansetron HCl (Zofran Odt) 4 mg 1X ONCE PO Last administered on 11/06/18at 22:50; Start 11/06/18 at 22:45; Stop 11/06/18 at 22:46; Status DC Acetaminophen/ Hydrocodone Bitart (Lortab 5/325) 1 tab 1X ONCE PO Last administered on 11/06/18at 22:50; Start 11/06/18 at 22:45; Stop 11/06/18 at 22:46; Status DC Ondansetron HCl (Zofran) 4 mg PRN Q8HRS PRN IV NAUSEA/VOMITING Last administered on 11/07/18at 00:47; Start 11/07/18 at 00:30; Stop 11/07/18 at 09:24; Status DC Fentanyl Citrate (Fentanyl 2ml Vial) 50 mcg PRN Q1HR PRN IV PAIN Last administered on 11/07/18at 09:51; Start 11/07/18 at 00:30; Stop 11/08/18 at 00:29 Acetaminophen (Tylenol) 650 mg PRN Q4HRS PRN PO FEVER Last administered on 11/07/18at 02:23; Start 11/07/18 at 00:30; Stop 11/08/18 at 00:29 Clonidine HCl (Catapres) 0.1 mg 1X ONCE PO Last administered on 11/07/18at 02:23; Start 11/07/18 at 01:45; Stop 11/07/18 at 01:46; Status DC Ondansetron HCl (Zofran) 4 mg PRN Q6HRS PRN IV NAUSEA/VOMITING; Start 11/07/18 at 09:30 Clonidine HCl (Catapres) 0.1 mg PRN Q1HR PRN PO HYPERTENSION; Start 11/07/18 at 09:30 Aspirin (Children'S Aspirin) 81 mg DAILY PO Last administered on 11/07/18at 09:51; Start 11/07/18 at 10:00 Atorvastatin Calcium (Lipitor) 10 mg HS PO ; Start 11/07/18 at 21:00 Losartan Potassium (Cozaar) 50 mg DAILY PO Last administered on 11/07/18at 09:51; Start 11/07/18 at 10:00 Nitroglycerin (Nitrostat) 0.4 mg PRN Q5MIN PRN SL CHEST PAIN; Start 11/07/18 at 09:30 Topiramate (Topamax) 100 mg DAILY PO ; Start 11/07/18 at 10:00 Tramadol HCl (Ultram) 50 mg PRN BID PRN PO PAIN; Start 11/07/18 at 09:30 Trazodone HCl (Desyrel) 100 mg QHS PO ; Start 11/07/18 at 21:00 Albuterol Sulfate (Ventolin Neb Soln) 2.5 mg PRN Q4HRS PRN NEB SHORTNESS OF B REATH; Start 11/07/18 at 09:45 Diclofenac Sodium (Voltaren) 1 deana QID TP ; Start 11/07/18 at 13:00 Duloxetine HCl (Cymbalta) 60 mg BID PO ; Start 11/07/18 at 09:30 Carvedilol (Coreg) 3.125 mg BIDWMEALS PO ; Start 11/07/18 at 12:00 Active Scripts Active Reported Aspirin 81 Mg Tab.chew 1 Tab PO DAILY Losartan Potassium 50 Mg Tablet Mg PO DAILY Albuterol Sulfate Conc Neb Soln (Albuterol Sulfate) 2.5 Mg/0.5 Ml Vial.neb 1 Vial NEB Q4HRS PRN Flector (Diclofenac Epolamine) 1 Each Patch.td12 1 Each TD 3X/WEEK ON SEVEN DAYS THEN CHANGE. Tramadol Hcl 50 Mg Tablet 1 Tab PO BID PRN Atorvastatin Calcium 10 Mg Tablet 10 Mg PO HS Nitrostat (Nitroglycerin) 0.4 Mg Tab.subl 0.4 Mg SL PRN Q5MIN PRN Topiramate 100 Mg Tablet 100 Mg PO DAILY Trazodone Hcl 50 Mg Tablet 100 Mg PO HS Allergies Allergies: Coded Allergies: clindamycin HCl (Verified Allergy, Severe, hives, 03/23/13) clindamycin palmitate HCl (Verified Allergy, Severe, hives, 03/23/13) clindamycin phosphate (Verified Allergy, Severe, hives, 03/23/13) lisinopril (Verified Allergy, Severe, Shortness of Air, 03/23/13) pecan nut (Verified Allergy, Severe, 11/07/18) Penicillins (Verified Allergy, Intermediate, Hives, 03/23/13) docusate (Verified Allergy, Intermediate, 03/18/16) promethazine HCl (Verified Allergy, Intermediate, "Regress to childhood", 03/23/13) Uncoded Allergies: blue cheese (Allergy, Unknown, 05/20/16) ROS Review of System left wrist pain the rest of ros neg 14 pt reviewed with her Physical Exam General: Alert, Oriented X3, Cooperative, No acute distress HEENT: PERRLA, EOMI Lungs: Clear to auscultation, Normal air movement Heart: S1S2, RRR, no thrills, no rubs, no gallops, no murmurs Cardiovascular: S1, S2 Breasts: Normal, Rt breast nml w/o mass, Lt breast nml w/o mass, Nipples normal Abdomen: Normal bowel sounds, Soft, No tenderness, No hepatosplenomegaly, No masses Rectal Exam: not examined PELVIC: Nml ext genitalia Extremities: Other (left wrist swelling and pain and limited flexion,no oopen skin breaks) Skin: No rashes, No breakdown, No significant lesion Neuro: Normal gait, Normal speech, Strength at 5/5 X4 ext, Normal tone, Sensation intact, Cranial nerves 3-12 NL, Reflexes 2+ Vitals Vitals Vital Signs Date Time Temp Pulse Resp B/P (MAP) Pulse Ox O2 Delivery O2 Flow Rate FiO2 11/07/18 11:00 98.9 60 18 163/71 (101) 98 Nasal Cannula 2.0 98.9 Labs Labs Laboratory Tests Test 11/06/18 23:55 11/07/18 03:15 White Blood Count 10.3 x10^3/uL (4.0-11.0) Red Blood Count 4.40 x10^6/uL (3.50-5.40) Hemoglobin 14.5 g/dL (12.0-15.5) Hematocrit 41.4 % (36.0-47.0) Mean Corpuscular Volume 94 fL (79-100) Mean Corpuscular Hemoglobin 33 pg (25-35) Mean Corpuscular Hemoglobin Concent 35 g/dL (31-37) Red Cell Distribution Width 12.7 % (11.5-14.5) Platelet Count 167 x10^3/uL (140-400) Neutrophils (%) (Auto) 86 % (31-73) Lymphocytes (%) (Auto) 6 % (24-48) Monocytes (%) (Auto) 7 % (0-9) Eosinophils (%) (Auto) 0 % (0-3) Basophils (%) (Auto) 0 % (0-3) Neutrophils # (Auto) 8.9 x10^3/uL (1.8-7.7) Lymphocytes # (Auto) 0.7 x10^3/uL (1.0-4.8) Monocytes # (Auto) 0.7 x10^3/uL (0.0-1.1) Eosinophils # (Auto) 0.0 x10^3/uL (0.0-0.7) Basophils # (Auto) 0.0 x10^3/uL (0.0-0.2) Segmented Neutrophils % 88 % (35-66) Band Neutrophils % 1 % (0-9) Lymphocytes % 6 % (24-48) Monocytes % 5 % (0-10) Platelet Estimate Adequate (ADEQUATE) Urine Collection Type Unknown Urine Color Yellow Urine Clarity Clear Urine pH 6.5 Urine Specific [place] 1.010 Urine Protein Negative mg/dL (NEG-TRACE) Urine Glucose (UA) Negative mg/dL (NEG) Urine Ketones (Stick) Negative mg/dL (NEG) Urine Blood Negative (NEG) Urine Nitrite Negative (NEG) Urine Bilirubin Negative (NEG) Urine Urobilinogen Dipstick 1.0 mg/dL (0.2 mg/dL) Urine Leukocyte Esterase Negative (NEG) Urine RBC Occ /HPF (0-2) Urine WBC Occ /HPF (0-4) Urine Squamous Epithelial Cells Few /LPF Urine Bacteria 0 /HPF (0-FEW) Urine Mucus Slight /LPF Sodium Level 142 mmol/L (136-145) Potassium Level 4.3 mmol/L (3.5-5.1) Chloride Level 103 mmol/L (98-107) Carbon Dioxide Level 29 mmol/L (21-32) Anion Gap 10 (6-14) Blood Urea Nitrogen 16 mg/dL (7-20) Creatinine 0.9 mg/dL (0.6-1.0) Estimated GFR (Cockcroft-Gault) 61.4 BUN/Creatinine Ratio 18 (6-20) Glucose Level 137 mg/dL (70-99) Calcium Level 9.5 mg/dL (8.5-10.1) Total Bilirubin 1.0 mg/dL (0.2-1.0) Aspartate Amino Transf (AST/SGOT) 21 U/L (15-37) Alanine Aminotransferase (ALT/SGPT) 26 U/L (14-59) Alkaline Phosphatase 77 U/L (46-116) Troponin I Quantitative < 0.017 ng/mL (0.000-0.055) < 0.017 ng/mL (0.000-0.055) Total Protein 7.6 g/dL (6.4-8.2) Albumin 4.2 g/dL (3.4-5.0) Albumin/Globulin Ratio 1.2 (1.0-1.7) Laboratory Tests Test 11/06/18 23:55 11/07/18 03:15 White Blood Count 10.3 x10^3/uL (4.0-11.0) Red Blood Count 4.40 x10^6/uL (3.50-5.40) Hemoglobin 14.5 g/dL (12.0-15.5) Hematocrit 41.4 % (36.0-47.0) Mean Corpuscular Volume 94 fL (79-100) Mean Corpuscular Hemoglobin 33 pg (25-35) Mean Corpuscular Hemoglobin Concent 35 g/dL (31-37) Red Cell Distribution Width 12.7 % (11.5-14.5) Platelet Count 167 x10^3/uL (140-400) Neutrophils (%) (Auto) 86 % (31-73) Lymphocytes (%) (Auto) 6 % (24-48) Monocytes (%) (Auto) 7 % (0-9) Eosinophils (%) (Auto) 0 % (0-3) Basophils (%) (Auto) 0 % (0-3) Neutrophils # (Auto) 8.9 x10^3/uL (1.8-7.7) Lymphocytes # (Auto) 0.7 x10^3/uL (1.0-4.8) Monocytes # (Auto) 0.7 x10^3/uL (0.0-1.1) Eosinophils # (Auto) 0.0 x10^3/uL (0.0-0.7) Basophils # (Auto) 0.0 x10^3/uL (0.0-0.2) Segmented Neutrophils % 88 % (35-66) Band Neutrophils % 1 % (0-9) Lymphocytes % 6 % (24-48) Monocytes % 5 % (0-10) Platelet Estimate Adequate (ADEQUATE) Urine Collection Type Unknown Urine Color Yellow Urine Clarity Clear Urine pH 6.5 Urine Specific [place] 1.010 Urine Protein Negative mg/dL (NEG-TRACE) Urine Glucose (UA) Negative mg/dL (NEG) Urine Ketones (Stick) Negative mg/dL (NEG) Urine Blood Negative (NEG) Urine Nitrite Negative (NEG) Urine Bilirubin Negative (NEG) Urine Urobilinogen Dipstick 1.0 mg/dL (0.2 mg/dL) Urine Leukocyte Esterase Negative (NEG) Urine RBC Occ /HPF (0-2) Urine WBC Occ /HPF (0-4) Urine Squamous Epithelial Cells Few /LPF Urine Bacteria 0 /HPF (0-FEW) Urine Mucus Slight /LPF Sodium Level 142 mmol/L (136-145) Potassium Level 4.3 mmol/L (3.5-5.1) Chloride Level 103 mmol/L (98-107) Carbon Dioxide Level 29 mmol/L (21-32) Anion Gap 10 (6-14) Blood Urea Nitrogen 16 mg/dL (7-20) Creatinine 0.9 mg/dL (0.6-1.0) Estimated GFR (Cockcroft-Gault) 61.4 BUN/Creatinine Ratio 18 (6-20) Glucose Level 137 mg/dL (70-99) Calcium Level 9.5 mg/dL (8.5-10.1) Total Bilirubin 1.0 mg/dL (0.2-1.0) Aspartate Amino Transf (AST/SGOT) 21 U/L (15-37) Alanine Aminotransferase (ALT/SGPT) 26 U/L (14-59) Alkaline Phosphatase 77 U/L (46-116) Troponin I Quantitative < 0.017 ng/mL (0.000-0.055) < 0.017 ng/mL (0.000-0.055) Total Protein 7.6 g/dL (6.4-8.2) Albumin 4.2 g/dL (3.4-5.0) Albumin/Globulin Ratio 1.2 (1.0-1.7) VTE Prophylaxis Ordered VTE Prophylaxis Devices: Yes VTE Pharmacological Prophylaxi: Yes Assessment/Plan Assessment/Plan 1. Mechanical fall: Xrays unremarkable so far, Noncardiac. 2. Left wrist pain pain with limited ROM 3. Chest pain/SOA: trops nml. Chronic RBBB. 4. CAD with previous redo CABG 02/2014 3. HTN urgency: improving 4. RENAN; improved with weight loss 5 DM2 6. PPM with hx of SSS. [facility] 7. Right prosthetic foot PLAn: Check wrist xray SPlint that wrist Inc or adjust pain emds - not helping PT.OT Await cardiac work up/recs Fall risk Ok for diet I Have reconciled home emds EVELYN MOORE MD Nov 07, 2018 12:08
[2018-11-07] MEDS ORDERED: KETOROLAC 15 MG/ML VIAL. IV ONE (12:15)
[2018-11-07 12:24] LABS: CHOLESTEROL/HDL RATIO 1.8
[2018-11-07] MEDS: DICLOFENAC SODIUM 1% TOPICAL GEL 100GM TUBE. TP SCH ×3 (12:28→21:34)
[2018-11-07] MEDS: CARVEDILOL 3.125 MG TABLET. PO SCH ×2 (12:28→17:43)
[2018-11-07] MEDS: CELECOXIB 100 MG CAPSULE. PO SCH ×2 (16:07→21:33)
--- NOTE | 2018-11-07 16:43 | RAD ---
Three-view left wrist study Clinical indications: Fall. Pain. FINDINGS: Nondisplaced fracture of the distal left radial epiphysis is seen with intra-articular extension. Radial carpal articulation is maintained. IMPRESSION: Subtle nondisplaced distal left radial epiphyseal fracture. Electronically signed by: Ganesh Patel MD (11/07/2018 4:40 PM) [place] [id number]
[2018-11-07] MEDS: HYDROcodone/APAP 5/325MG 1 TAB TABLET PO PRN (19:17)
[2018-11-07] MEDS ORDERED: CELECOXIB 100 MG CAPSULE. PO SCH (21:00)
[2018-11-07] MEDS: ATORVASTATIN CALCIUM 10 MG TABLET. PO SCH (21:33)
[2018-11-07] MEDS: traZODone 100 MG TABLET. PO SCH (21:33)
[2018-11-08 03:25] VITALS: BP 157/71
[2018-11-08] MEDS: HYDROcodone/APAP 5/325MG 1 TAB TABLET PO PRN ×3 (03:42→21:10)
[2018-11-08 07:00] VITALS: BP 129/73
[2018-11-08] MEDS: CELECOXIB 100 MG CAPSULE. PO SCH ×2 (08:25→21:08)
[2018-11-08] MEDS: CARVEDILOL 3.125 MG TABLET. PO SCH ×2 (08:25→17:26)
[2018-11-08] MEDS: ASPIRIN CHEWABLE 81 MG TABLET. PO SCH (08:25)
[2018-11-08] MEDS: LOSARTAN POTASSIUM 50 MG TABLET. PO SCH (08:25)
[2018-11-08] MEDS: DICLOFENAC SODIUM 1% TOPICAL GEL 100GM TUBE. TP SCH ×4 (08:25→21:11)
[2018-11-08 10:51] VITALS: BP 139/65
--- NOTE | 2018-11-08 10:52 | PDOC ---
CARDIO Progress Notes Date and Time Date of Service 11/08/2018 Time of Evaluation 1040 Subjective Subjective: No Chest Pain, No shortness of breath, No Palpitations Vitals Vitals Vital Signs Date Time Temp Pulse Resp B/P (MAP) Pulse Ox O2 Delivery O2 Flow Rate FiO2 11/08/18 08:26 85 129/73 11/08/18 08:00 Room Air 11/08/18 07:00 98.5 18 99 2.0 98.5 Weight Weight [ ] Input and Output Intake and Output Intake and Output 11/08/18 06:59 Intake Total 750 ml Output Total 450 ml Balance 300 ml Intake Oral 750 ml Output Urine Total 450 ml # Voids 1 Physical Exam HEENT: Neck Supple W Full Motion Chest: Symmetric LUNGS: Other (diminished bases) Heart: S1S2, RRR (SR), no thrills, no rubs, no gallops, no murmurs Abdomen: Soft N/T Extremities: No Calf Tenderness Neurology: alert, oriented, follow commands Assessment Assessment 1. Mechanical fall: Noncardiac. No orthostasis 2. Left Wrist fracture: due to fall. per ortho 3. Chest pain/SOA: trops nml. Chronic RBBB. None further today. CP likely MSK 4. CAD with previous redo CABG 02/2014 3. HTN urgency: improving 4. RENAN; improved with weight loss 5 DM2/HLP: lipids on goal 6. PPM with hx of SSS. [facility] normal function. DDDR 8.7-10.7 battery life 70% AP <1% [employer] ADMIN[employer] 0 afib burden 7. Right prosthetic foot Recommendations 1. Awaiting TTE report 2. ASA, continue with secondary prevention measures 3. Device check. 4. Continue with current BP regimen 5. Outpt stress test if none done recently 6. Rehab pending ortho plan for wrist. 7. Follow in office in 4-6 weeks. YAMILEX MULLIGAN APRN Nov 08, 2018 10:51
--- NOTE | 2018-11-08 11:40 | PDOC ---
PROGRESS NOTES Chief Complaint Chief Complaint 1. Mechanical fall: . 2. LEFT WRIST FX 3. Chest pain/SOA: trops nml. Chronic RBBB. 4. CAD with previous redo CABG 02/2014 3. HTN urgency: improving 4. RENAN; improved with weight loss 5 DM2 6. PPM with hx of SSS. [facility] 7. Right prosthetic foot History of Present Illness History of Present Illness WRIST xray: IMPRESSION: Subtle nondisplaced distal left radial epiphyseal fracture. HAs a splint, and I have adjusted meds - pain much better Slated for SNU Stable cardiac coy PLAn: Await ortho ff up echo and pacer interrogation (was done yest at 4 PM) Vitals Vitals Vital Signs Date Time Temp Pulse Resp B/P (MAP) Pulse Ox O2 Delivery O2 Flow Rate FiO2 11/08/18 10:51 98.3 64 18 139/65 (89) 91 Room Air 98.3 11/08/18 07:00 2.0 Physical Exam General: Alert, Oriented X3, Cooperative, No acute distress Heart: Regular rate (atrail pacing), Normal S1, Normal S2, No murmurs Abdomen: Normal bowel sounds, Soft, No tenderness, No hepatosplenomegaly, No masses Extremities: Other (left wrist swelling and pain and limited flexion,no oopen skin breaks) Skin: No rashes, No breakdown, No significant lesion Review of Systems Review of Systems left wrist pain, the rest 14 pt neg reviewed with her Assessment and Plan Assessmemt and Plan Problems Medical Problems: (1) CAD (coronary artery disease) Status: Chronic (2) DM2 (diabetes mellitus, type 2) Status: Chronic (3) Fall Status: Acute (4) Hypertensive urgency Status: Chronic (5) RENAN (obstructive sleep apnea) Status: Chronic (6) Shortness of breath Status: Acute Comment Review of Relevant I have reviewed the following items beatriz (where applicable) has been applied. Labs Laboratory Tests Test 11/06/18 23:55 11/07/18 03:15 White Blood Count 10.3 x10^3/uL (4.0-11.0) Red Blood Count 4.40 x10^6/uL (3.50-5.40) Hemoglobin 14.5 g/dL (12.0-15.5) Hematocrit 41.4 % (36.0-47.0) Mean Corpuscular Volume 94 fL (79-100) Mean Corpuscular Hemoglobin 33 pg (25-35) Mean Corpuscular Hemoglobin Concent 35 g/dL (31-37) Red Cell Distribution Width 12.7 % (11.5-14.5) Platelet Count 167 x10^3/uL (140-400) Neutrophils (%) (Auto) 86 % (31-73) Lymphocytes (%) (Auto) 6 % (24-48) Monocytes (%) (Auto) 7 % (0-9) Eosinophils (%) (Auto) 0 % (0-3) Basophils (%) (Auto) 0 % (0-3) Neutrophils # (Auto) 8.9 x10^3/uL (1.8-7.7) Lymphocytes # (Auto) 0.7 x10^3/uL (1.0-4.8) Monocytes # (Auto) 0.7 x10^3/uL (0.0-1.1) Eosinophils # (Auto) 0.0 x10^3/uL (0.0-0.7) Basophils # (Auto) 0.0 x10^3/uL (0.0-0.2) Segmented Neutrophils % 88 % (35-66) Band Neutrophils % 1 % (0-9) Lymphocytes % 6 % (24-48) Monocytes % 5 % (0-10) Platelet Estimate Adequate (ADEQUATE) Urine Collection Type Unknown Urine Color Yellow Urine Clarity Clear Urine pH 6.5 Urine Specific Ruffin 1.010 Urine Protein Negative mg/dL (NEG-TRACE) Urine Glucose (UA) Negative mg/dL (NEG) Urine Ketones (Stick) Negative mg/dL (NEG) Urine Blood Negative (NEG) Urine Nitrite Negative (NEG) Urine Bilirubin Negative (NEG) Urine Urobilinogen Dipstick 1.0 mg/dL (0.2 mg/dL) Urine Leukocyte Esterase Negative (NEG) Urine RBC Occ /HPF (0-2) Urine WBC Occ /HPF (0-4) Urine Squamous Epithelial Cells Few /LPF Urine Bacteria 0 /HPF (0-FEW) Urine Mucus Slight /LPF Sodium Level 142 mmol/L (136-145) Potassium Level 4.3 mmol/L (3.5-5.1) Chloride Level 103 mmol/L (98-107) Carbon Dioxide Level 29 mmol/L (21-32) Anion Gap 10 (6-14) Blood Urea Nitrogen 16 mg/dL (7-20) Creatinine 0.9 mg/dL (0.6-1.0) Estimated GFR (Cockcroft-Gault) 61.4 BUN/Creatinine Ratio 18 (6-20) Glucose Level 137 mg/dL (70-99) Calcium Level 9.5 mg/dL (8.5-10.1) Total Bilirubin 1.0 mg/dL (0.2-1.0) Aspartate Amino Transf (AST/SGOT) 21 U/L (15-37) Alanine Aminotransferase (ALT/SGPT) 26 U/L (14-59) Alkaline Phosphatase 77 U/L (46-116) Troponin I Quantitative < 0.017 ng/mL (0.000-0.055) < 0.017 ng/mL (0.000-0.055) Total Protein 7.6 g/dL (6.4-8.2) Albumin 4.2 g/dL (3.4-5.0) Albumin/Globulin Ratio 1.2 (1.0-1.7) Triglycerides Level 37 mg/dL (0-150) Cholesterol Level 161 mg/dL (0-200) LDL Cholesterol, Calculated 65 mg/dL (0-100) VLDL Cholesterol, Calculated 7 mg/dL (0-40) Non-HDL Cholesterol Calculated 72 mg/dL (0-129) HDL Cholesterol 89 mg/dL (40-60) Cholesterol/HDL Ratio 1.8 Thyroid Stimulating Hormone (TSH) 3.221 uIU/mL (0.358-3.74) Medications Current Medications Ondansetron HCl (Zofran Odt) 4 mg 1X ONCE PO Last administered on 11/06/18at 22:50; Start 11/06/18 at 22:45; Stop 11/06/18 at 22:46; Status DC Acetaminophen/ Hydrocodone Bitart (Lortab 5/325) 1 tab 1X ONCE PO Last administered on 11/06/18at 22:50; Start 11/06/18 at 22:45; Stop 11/06/18 at 22:46; Status DC Ondansetron HCl (Zofran) 4 mg PRN Q8HRS PRN IV NAUSEA/VOMITING Last administered on 11/07/18at 00:47; Start 11/07/18 at 00:30; Stop 11/07/18 at 09:24; Status DC Fentanyl Citrate (Fentanyl 2ml Vial) 50 mcg PRN Q1HR PRN IV PAIN Last administered on 11/07/18at 09:51; Start 11/07/18 at 00:30; Stop 11/08/18 at 00:29; Status DC Acetaminophen (Tylenol) 650 mg PRN Q4HRS PRN PO FEVER Last administered on 11/07/18at 02:23; Start 11/07/18 at 00:30; Stop 11/07/18 at 17:08; Status DC Clonidine HCl (Catapres) 0.1 mg 1X ONCE PO Last administered on 11/07/18at 02:23; Start 11/07/18 at 01:45; Stop 11/07/18 at 01:46; Status DC Ondansetron HCl (Zofran) 4 mg PRN Q6HRS PRN IV NAUSEA/VOMITING; Start 11/07/18 at 09:30 Clonidine HCl (Catapres) 0.1 mg PRN Q1HR PRN PO HYPERTENSION; Start 11/07/18 at 09:30 Aspirin (Children'S Aspirin) 81 mg DAILY PO Last administered on 11/08/18at 08:26; Start 11/07/18 at 10:00 Atorvastatin Calcium (Lipitor) 10 mg HS PO Last administered on 11/07/18at 21:34; Start 11/07/18 at 21:00 Losartan Potassium (Cozaar) 50 mg DAILY PO Last administered on 11/08/18at 08:26; Start 11/07/18 at 10:00 Nitroglycerin (Nitrostat) 0.4 mg PRN Q5MIN PRN SL CHEST PAIN; Start 11/07/18 at 09:30 Topiramate (Topamax) 100 mg DAILY PO ; Start 11/07/18 at 10:00; Stop 11/08/18 at 07:56; Status DC Tramadol HCl (Ultram) 50 mg PRN BID PRN PO PAIN; Start 11/07/18 at 09:30; Stop 11/07/18 at 15:31; Status DC Trazodone HCl (Desyrel) 100 mg QHS PO Last administered on 11/07/18at 21:34; Start 11/07/18 at 21:00 Albuterol Sulfate (Ventolin Neb Soln) 2.5 mg PRN Q4HRS PRN NEB SHORTNESS OF BREATH; Start 11/07/18 at 09:45 Diclofenac Sodium (Voltaren) 1 deana QID TP Last administered on 11/08/18 08:26; Start 11/07/18 at 13:00 Duloxetine HCl (Cymbalta) 60 mg BID PO Last administered on 11/07/18 21:34; Start 11/07/18 at 09:30; Stop 11/08/18 at 07:56; Status DC Carvedilol (Coreg) 3.125 mg BIDWMEALS PO Last administered on 11/08/18 08:26; Start 11/07/18 at 12:00 Ketorolac Tromethamine (Toradol 15mg Vial) 15 mg 1X ONCE IV Last administered on 11/07/18 12:29; Start 11/07/18 at 12:15; Stop 11/07/18 at 12:16; Status DC Celecoxib (CeleBREX) 100 mg BID PO ; Start 11/07/18 at 21:00; Stop 11/07/18 at 15:31; Status DC Celecoxib (CeleBREX) 100 mg BID PO Last administered on 11/08/18 08:26; Start 11/07/18 at 15:30 Tramadol HCl (Ultram) 50 mg PRN Q6HRS PRN PO MILD PAIN 1-3; Start 11/07/18 at 15:30 Acetaminophen/ Hydrocodone Bitart (Lortab 5/325) 1 tab PRN Q4HRS PRN PO MODERATE PAIN, SEVERE PAIN Last administered on 11/08/18at 03:43; Start 11/07/18 at 15:30 Active Scripts Active Reported Aspirin 81 Mg Tab.chew 1 Tab PO DAILY Losartan Potassium 50 Mg Tablet Mg PO DAILY Albuterol Sulfate Conc Neb Soln (Albuterol Sulfate) 2.5 Mg/0.5 Ml Vial.neb 1 Vial NEB Q4HRS PRN Flector (Diclofenac Epolamine) 1 Each Patch.td12 1 Each TD 3X/WEEK ON SEVEN DAYS THEN CHANGE. Tramadol Hcl 50 Mg Tablet 1 Tab PO BID PRN Atorvastatin Calcium 10 Mg Tablet 10 Mg PO HS Nitrostat (Nitroglycerin) 0.4 Mg Tab.subl 0.4 Mg SL PRN Q5MIN PRN Topiramate 100 Mg Tablet 100 Mg PO DAILY Trazodone Hcl 50 Mg Tablet 100 Mg PO HS Vitals/I & O Vital Sign - Last 24 Hours 11/07/18 11/07/18 11/07/18 11/07/18 12:29 14:15 14:20 14:25 Pulse 60 B/P (MAP) 163/71 150/69 (96) 160/74 (102) 161/82 (108) 11/07/18 11/07/18 11/07/18 11/07/18 15:00 17:43 19:17 19:30 Temp 97.9 98.4 97.9 98.4 Pulse 60 60 61 Resp 18 20 B/P (MAP) 161/82 (108) 161/82 153/69 (97) Pulse Ox 96 91 O2 Delivery Nasal Cannula Room Air Room Air O2 Flow Rate 2.0 11/07/18 11/07/18 11/07/18 11/07/18 19:45 23:05 23:10 23:34 Temp 97.9 97.9 Pulse 64 Resp 18 B/P (MAP) 130/62 (84) Pulse Ox 84 93 O2 Delivery Room Air Room Air Nasal Cannula Room Air O2 Flow Rate 2.0 11/08/18 11/08/18 11/08/18 11/08/18 03:25 03:43 06:10 07:00 Temp 98.4 98.5 98.4 98.5 Pulse 66 85 Resp 18 18 B/P (MAP) 157/71 (99) 129/73 (91) Pulse Ox 96 99 O2 Delivery Nasal Cannula Nasal Cannula Nasal Cannula Nasal Cannula O2 Flow Rate 2.0 2.0 2.0 2.0 11/08/18 11/08/18 11/08/18 11/08/18 08:00 08:26 08:26 10:51 Temp 98.3 98.3 Pulse 85 85 64 Resp 18 B/P (MAP) 129/73 129/73 139/65 (89) Pulse Ox 91 O2 Delivery Room Air Room Air Intake and Output 11/07/18 11/07/18 11/08/18 14:59 22:59 06:59 Intake Total 350 ml 200 ml 200 ml Output Total 150 ml 200 ml 100 ml Balance 200 ml 0 ml 100 ml EVELYN MOORE MD Nov 08, 2018 11:40
[2018-11-08 14:31] VITALS: BP 145/70
--- NOTE | 2018-11-08 15:53 | CARD ---
MR#: [id number] Date of Study: 11/07/2018 Ordering Physician: YAMILEX MULLIGAN, Referring Physician: YAMILEX MULLIGAN, Tech: Mariaelena Emmanuel APPROVED REPORT EXAM: Two-dimensional and M-mode echocardiogram with Doppler and color Doppler. Other Information HR: 60bpm Rhythm : Pacemaker INDICATION Dyspnea Cardiac Disease: CAD Syncope Surgery/Intervention Pacemaker: CABG: Date: 1995 RISK FACTORS Hypertension Hyperlipidemia 2D DIMENSIONS RVDd2.7 (2.9-3.5cm)Left Atrium(2D)2.8 (1.6-4.0cm) IVSd0.9 (0.7-1.1cm)Aortic Root(2D)2.7 (2.0-3.7cm) LVDd4.7 (3.9-5.9cm)LVOT Diameter1.9 (1.8-2.4cm) PWd1.1 (0.7-1.1cm)LVDs2.3 (2.5-4.0cm) FS (%) 50.3 %SV82.7 ml Aortic Valve AoV Peak Kevin.160.9cm/sAoV VTI33.6cm AO Peak GR.10.4mmHgLVOT VTI 22.48cm AO Mean GR.7mmHg Mitral Valve MV E Zufjvdda30.9cm/sMV DECEL [id number] MV A Awdzpklq87.0cm/sE/A Ratio0.8 TDI Lateral E' P. V5.41cm/sMedial E' P. V6.05cm/s E/Lateral E'12.4E/Medial E'11.1 Tricuspid Valve TR P. Hyxhyled756fe/sRAP [id number] TR Peak Gr.71wyTiKJEX86jcKw Pulmonary Vein S1 Hpmtgdzi71.8cm/sS2 Wptdvsbt82.15cm/s D2 Qvffzkax98.1cm/sPVa [id number] LEFT VENTRICLE The left ventricle is normal size. There is normal left ventricular wall thickness. The left ventricu lar systolic function is normal and the ejection fraction is within normal range. The Ejection Fracti on is 55-60%. There is normal LV segmental wall motion. Transmitral Doppler flow pattern is Grade I-a bnormal relaxation pattern. RIGHT VENTRICLE The right ventricle is borderline dilated. There is normal right ventricular wall thickness. The righ t ventricular systolic function is normal. There is a probable pacemaker lead in the right ventricle. ATRIA The left atrium size is normal. The right atrium size is normal. The interatrial septum is intact wit h no evidence for an atrial septal defect or patent foramen ovale as noted on 2-D or Doppler imaging. AORTIC VALVE The aortic valve is normal in structure and function. Doppler and Color Flow revealed no significant aortic regurgitation. There is no significant aortic valvular stenosis. MITRAL VALVE The mitral valve is normal in structure and function. There is no evidence of mitral valve prolapse. There is no mitral valve stenosis. Doppler and Color Flow revealed trace mitral valve regurgitation. TRICUSPID VALVE The tricuspid valve is normal in structure and function. Doppler and Color Flow revealed trace tricus pid regurgitation. There is no tricuspid valve prolapse or vegetation. There is no tricuspid valve st enosis. PULMONIC VALVE The pulmonic valve is not well visualized. Doppler and Color Flow revealed trace pulmonic valvular re gurgitation. GREAT VESSELS The aortic root is normal in size. The IVC is normal in size and collapses >50% with inspiration. PERICARDIAL EFFUSION There is no evidence of significant pericardial effusion. Critical Notification Critical Value: No <Conclusion> The left ventricle is normal size. The left ventricular systolic function is normal and the ejection fraction is within normal range. The Ejection Fraction is 55-60%. There is no significant aortic valvular stenosis. Doppler and Color Flow revealed no significant aortic regurgitation. Doppler and Color Flow revealed trace mitral valve regurgitation. Doppler and Color Flow revealed trace tricuspid regurgitation. Signed by : Huey Ng MD Electronically Approved : 11/08/2018 15:52:40
--- NOTE | 2018-11-08 16:47 | NUR ---
SW following pt for dc planning. Chart reviewed and pt lives at home. PT/OT recommends SNU. Pt will need two more midnights before dc to SNU. Will follow up with pt/family in the morning.
[2018-11-08 19:00] VITALS: BP 164/77
[2018-11-08] MEDS: ATORVASTATIN CALCIUM 10 MG TABLET. PO SCH (21:08)
[2018-11-08] MEDS: traZODone 100 MG TABLET. PO SCH (21:08)
[2018-11-08 23:00] VITALS: BP 151/67
[2018-11-09 03:00] VITALS: BP 148/67
[2018-11-09 07:00] VITALS: BP 158/69
[2018-11-09] MEDS: HYDROcodone/APAP 5/325MG 1 TAB TABLET PO PRN ×4 (07:28→20:38)
--- NOTE | 2018-11-09 07:34 | CONS ---
DATE OF CONSULTATION: 11/08/2018 ORTHOPEDIC CONSULTATION REQUESTING PHYSICIAN: Dr. Huang. REASON FOR CONSULTATION: Left wrist pain. HISTORY OF PRESENT ILLNESS: The patient is a 73-year-old female that had a recent fall and states that she had sudden onset of left wrist pain as well as right hip and knee pain. She has a history of previous prosthesis to her right lower extremity, but had previously walked without any support. She is now having difficulty with right hip area pain and bearing weight on the right lower extremity and all over soreness. PAST MEDICAL HISTORY: Significant for coronary artery disease, hyperlipidemia, hypertension, asthma, migraine headaches, reflux disease and diabetes. PAST SURGICAL HISTORY: Significant for the right lower extremity amputation, pacemaker, coronary artery bypass, hernia repair and tonsillectomy. FAMILY HISTORY: Heart disease and diabetes. SOCIAL HISTORY: Ambulates previously independently. Denies tobacco, alcohol or drug use. MEDICATIONS: List is reviewed. ALLERGIES: SHE HAS SEVERAL ALLERGIES INCLUDING CLINDAMYCIN, LISINOPRIL, PENICILLIN, DOCUSATE, PROMETHAZINE AND FOOD ALLERGY TO PECANS. REVIEW OF SYSTEMS: Significant for the left wrist pain as well as right hip, knee and overall leg pain and overall soreness from a fall. She denies any head injury, focal weakness, numbness, tingling or visual changes. PHYSICAL EXAMINATION: GENERAL: This is a pleasant, cooperative, elderly female, alert and oriented, no acute distress. EXTREMITIES: On examination of the upper extremities, is very tender over the left distal radius compared to the right. She has swelling in the area as well. She can flex and extend the fingers fully, but with some discomfort. On the left hand, normal wrist examination, bilateral elbows and shoulders as well. On examination of the right lower extremity, has tenderness on weightbearing through an extended extremity on the right hip area and the groin. She has also some tenderness on internal and external rotation of the right hip. Normal examination of the left hip. Bilateral knees, has a distal amputation on the right lower extremity. Normal examination of the left foot and ankle. IMAGING: X-rays of the left wrist show a nondisplaced distal radius fracture with some intraarticular extension, but no displacement or step-off whatsoever. She has some mild degenerative changes in the wrist otherwise. X-rays of the right hip and knee showed no evidence of fracture or bony abnormality nor does a CT of the pelvis. IMPRESSION: 1. Left distal radius fracture. 2. Left hip contusion. TREATMENT PLAN: I went over with her the injury and the fact that we can treat both nonoperatively. As far as the left wrist goes, I have ordered her a Velcro wrist splints as this is nondisplaced and expected to be stable. She can take it off the shower, but keep the wrist splint on otherwise. In the interim, I think she has a hip contusion and we can do some protected weightbearing with a walker and I expected the use of a platform attachment on the left to account for her wrist fracture. All her questions were answered at this time. I have written orders for physical therapy for mobilization with a platform walker as well and we will follow along as necessary. KENDRA PROCTOR MD DR: SUKHI/bhanu JOB#: [id number] / [id number]
[2018-11-09] MEDS: LOSARTAN POTASSIUM 50 MG TABLET. PO SCH (08:56)
[2018-11-09] MEDS: ASPIRIN CHEWABLE 81 MG TABLET. PO SCH (08:56)
[2018-11-09] MEDS: CARVEDILOL 3.125 MG TABLET. PO SCH ×2 (08:56→17:46)
[2018-11-09] MEDS: CELECOXIB 100 MG CAPSULE. PO SCH ×2 (08:56→20:37)
[2018-11-09] MEDS: DICLOFENAC SODIUM 1% TOPICAL GEL 100GM TUBE. TP SCH ×4 (08:57→23:31)
[2018-11-09 11:00] VITALS: BP 146/59
--- NOTE | 2018-11-09 11:42 | NUR ---
Went to flush patients IV in her right forearm and it would not flush or draw back. IV access clotted off and is unable to be used. Patient stated it was hurting her when she moved around and has been asking to get it out for a while now since it hasn't been used since admission. IV discontinued due to not being able to use it. Only IV medication patient is on is IV zofran which patient has not needed. Will follow up with the doctor.
--- NOTE | 2018-11-09 12:16 | NUR ---
SS following up with discharge planning. Pt is currently on room air. PT/OT recommended halfway unit. SS met with pt to discuss halfway unit and discharge planning. Pt agreeable to halfway unit and requested that referral be sent to [facility], ; fax [phone]. SS phoned and faxed referral. SS will await acceptance decision and will proceed accordingly with discharge planning.
--- NOTE | 2018-11-09 12:31 | PDOC ---
PROGRESS NOTES Chief Complaint Chief Complaint 1. Mechanical fall: . 2. LEFT WRIST FX - nondisplaced distal left radial epiphyseal fracture. 3. Chest pain/SOA: trops nml. Chronic RBBB. 4. CAD with previous redo CABG 02/2014 3. HTN urgency: improving 4. RENAN; improved with weight loss 5 DM2 6. PPM with hx of SSS. [facility] 7. Right prosthetic foot History of Present Illness History of Present Illness ongoing pain, poor control will consult physiatry, try lidoderm path cont current OOB to chair HAs a splint, and I have adjusted meds - pain much better Slated for SNU Stable cardiac coy PLAn: Await ortho ff up echo and pacer interrogation (was done yest at 4 PM) Vitals Vitals Vital Signs Date Time Temp Pulse Resp B/P (MAP) Pulse Ox O2 Delivery O2 Flow Rate FiO2 11/09/18 11:00 98.9 63 16 146/59 (88) 94 Room Air 98.9 11/08/18 07:00 2.0 Physical Exam General: Alert, Oriented X3, Cooperative, No acute distress Heart: Regular rate (atrail pacing), Normal S1, Normal S2, No murmurs Abdomen: Normal bowel sounds, Soft, No tenderness, No hepatosplenomegaly, No masses Extremities: Other (left wrist swelling and pain and limited flexion,no oopen skin breaks) Skin: No rashes, No breakdown, No significant lesion Review of Systems Review of Systems pain, weakness no n.v.d Assessment and Plan Assessmemt and Plan Problems Medical Problems: (1) CAD (coronary artery disease) Status: Chronic (2) DM2 (diabetes mellitus, type 2) Status: Chronic (3) Fall Status: Acute (4) Hypertensive urgency Status: Chronic (5) RENAN (obstructive sleep apnea) Status: Chronic (6) Shortness of breath Status: Acute Comment Review of Relevant I have reviewed the following items beatriz (where applicable) has been applied. Medications Current Medications Ondansetron HCl (Zofran Odt) 4 mg 1X ONCE PO Last administered on 11/06/18at 22:50; Start 11/06/18 at 22:45; Stop 11/06/18 at 22:46; Status DC Acetaminophen/ Hydrocodone Bitart (Lortab 5/325) 1 tab 1X ONCE PO Last administered on 11/06/18 22:50; Start 11/06/18 at 22:45; Stop 11/06/18 at 22:46; Status DC Ondansetron HCl (Zofran) 4 mg PRN Q8HRS PRN IV NAUSEA/VOMITING Last administered on 11/07/18at 00:47; Start 11/07/18 at 00:30; Stop 11/07/18 at 09:24; Status DC Fentanyl Citrate (Fentanyl 2ml Vial) 50 mcg PRN Q1HR PRN IV PAIN Last administered on 11/07/18at 09:51; Start 11/07/18 at 00:30; Stop 11/08/18 at 00:29; Status DC Acetaminophen (Tylenol) 650 mg PRN Q4HRS PRN PO FEVER Last administered on 11/07/18 02:23; Start 11/07/18 at 00:30; Stop 11/07/18 at 17:08; Status DC Clonidine HCl (Catapres) 0.1 mg 1X ONCE PO Last administered on 11/07/18at 02:23; Start 11/07/18 at 01:45; Stop 11/07/18 at 01:46; Status DC Ondansetron HCl (Zofran) 4 mg PRN Q6HRS PRN IV NAUSEA/VOMITING; Start 11/07/18 at 09:30 Clonidine HCl (Catapres) 0.1 mg PRN Q1HR PRN PO HYPERTENSION; Start 11/07/18 at 09:30 Aspirin (Children'S Aspirin) 81 mg DAILY PO Last administered on 11/09/18 08:58; Start 11/07/18 at 10:00 Atorvastatin Calcium (Lipitor) 10 mg HS PO Last administered on 11/08/18at 21:11; Start 11/07/18 at 21:00 Losartan Potassium (Cozaar) 50 mg DAILY PO Last administered on 11/09/18at 08:58; Start 11/07/18 at 10:00 Nitroglycerin (Nitrostat) 0.4 mg PRN Q5MIN PRN SL CHEST PAIN; Start 11/07/18 at 09:30 Topiramate (Topamax) 100 mg DAILY PO ; Start 11/07/18 at 10:00; Stop 11/08/18 at 07:56; Status DC Tramadol HCl (Ultram) 50 mg PRN BID PRN PO PAIN; Start 11/07/18 at 09:30; Stop 11/07/18 at 15:31; Status DC Trazodone HCl (Desyrel) 100 mg QHS PO Last administered on 11/08/18at 21:11; Start 11/07/18 at 21:00 Albuterol Sulfate (Ventolin Neb Soln) 2.5 mg PRN Q4HRS PRN NEB SHORTNESS OF BREATH; Start 11/07/18 at 09:45 Diclofenac Sodium (Voltaren) 1 deana QID TP Last administered on 11/09/18 08:58; Start 11/07/18 at 13:00 Duloxetine HCl (Cymbalta) 60 mg BID PO Last administered on 11/07/18 21:34; Start 11/07/18 at 09:30; Stop 11/08/18 at 07:56; Status DC Carvedilol (Coreg) 3.125 mg BIDWMEALS PO Last administered on 11/09/18 08:58; Start 11/07/18 at 12:00 Ketorolac Tromethamine (Toradol 15mg Vial) 15 mg 1X ONCE IV Last administered on 11/07/18at 12:29; Start 11/07/18 at 12:15; Stop 11/07/18 at 12:16; Status DC Celecoxib (CeleBREX) 100 mg BID PO ; Start 11/07/18 at 21:00; Stop 11/07/18 at 15:31; Status DC Celecoxib (CeleBREX) 100 mg BID PO Last administered on 11/09/18 08:58; Start 11/07/18 at 15:30 Tramadol HCl (Ultram) 50 mg PRN Q6HRS PRN PO MILD PAIN 1-3 Last administered on 11/08/18 13:21; Start 11/07/18 at 15:30 Acetaminophen/ Hydrocodone Bitart (Lortab 5/325) 1 tab PRN Q4HRS PRN PO MODERATE PAIN, SEVERE PAIN Last administered on 11/09/18at 07:28; Start 11/07/18 at 15:30 Active Scripts Active Reported Aspirin 81 Mg Tab.chew 1 Tab PO DAILY Losartan Potassium 50 Mg Tablet Mg PO DAILY Albuterol Sulfate Conc Neb Soln (Albuterol Sulfate) 2.5 Mg/0.5 Ml Vial.neb 1 Vial NEB Q4HRS PRN Flector (Diclofenac Epolamine) 1 Each Patch.td12 1 Each TD 3X/WEEK ON SEVEN DAYS THEN CHANGE. Tramadol Hcl 50 Mg Tablet 1 Tab PO BID PRN Atorvastatin Calcium 10 Mg Tablet 10 Mg PO HS Nitrostat (Nitroglycerin) 0.4 Mg Tab.subl 0.4 Mg SL PRN Q5MIN PRN Topiramate 100 Mg Tablet 100 Mg PO DAILY Trazodone Hcl 50 Mg Tablet 100 Mg PO HS Vitals/I & O Vital Sign - Last 24 Hours 11/08/18 11/08/18 11/08/18 11/08/18 13:21 14:31 15:33 17:27 Temp 98.4 98.4 Pulse 62 62 Resp 18 B/P (MAP) 145/70 (95) 145/70 Pulse Ox 92 O2 Delivery Room Air Room Air Room Air 11/08/18 11/08/18 11/08/18 11/08/18 19:00 19:22 21:11 23:00 Temp 98.3 98.2 98.3 98.2 Pulse 66 78 Resp 18 18 B/P (MAP) 164/77 (106) 151/67 (95) Pulse Ox 91 91 O2 Delivery Room Air Room Air Room Air Room Air 11/09/18 11/09/18 11/09/18 11/09/18 03:00 07:00 07:28 08:00 Temp 98.3 98.9 98.3 98.9 Pulse 61 60 Resp 18 16 B/P (MAP) 148/67 (94) 158/69 (98) Pulse Ox 90 92 O2 Delivery Room Air Room Air Room Air Room Air 11/09/18 11/09/18 11/09/18 11/09/18 08:56 08:58 08:58 11:00 Temp 98.9 98.9 Pulse 60 75 63 Resp 16 B/P (MAP) 158/69 158/69 146/59 (88) Pulse Ox 92 94 O2 Delivery Room Air Room Air Intake and Output 11/08/18 11/08/18 11/09/18 14:59 22:59 06:59 Intake Total 390 ml 450 ml 900 ml Output Total 100 ml 1000 ml 200 ml Balance 290 ml -550 ml 700 ml KATELIN ROSENBERG MD Nov 09, 2018 12:31
[2018-11-09] MEDS: LIDOCAINE (700MG/PATCH) PATCH. TD SCH (12:59)
--- NOTE | 2018-11-09 13:51 | NUR ---
Per Dr Issa patient is not needing a new IV at this time due to not needing any IV medications. Will continue to monitor and follow up.
[2018-11-09 15:00] VITALS: BP 161/85
[2018-11-09 19:33] VITALS: BP 135/60
[2018-11-09] MEDS: traZODone 100 MG TABLET. PO SCH (20:37)
[2018-11-09] MEDS: ATORVASTATIN CALCIUM 10 MG TABLET. PO SCH (20:37)
[2018-11-09] MEDS ORDERED: PATCH REMOVAL. MC SCH (21:00)
[2018-11-09 22:09] VITALS: BP 122/61
[2018-11-10 02:03] VITALS: BP 156/78
[2018-11-10 07:28] VITALS: BP 179/77
[2018-11-10] MEDS: CARVEDILOL 3.125 MG TABLET. PO SCH ×2 (08:00→17:11)
[2018-11-10] MEDS: CELECOXIB 100 MG CAPSULE. PO SCH (08:01)
[2018-11-10] MEDS: HYDROcodone/APAP 5/325MG 1 TAB TABLET PO PRN ×2 (08:01→12:06)
[2018-11-10] MEDS: ASPIRIN CHEWABLE 81 MG TABLET. PO SCH (08:01)
[2018-11-10] MEDS: LOSARTAN POTASSIUM 50 MG TABLET. PO SCH (08:01)
[2018-11-10] MEDS: DICLOFENAC SODIUM 1% TOPICAL GEL 100GM TUBE. TP SCH ×3 (08:02→17:00)
[2018-11-10] MEDS: LIDOCAINE (700MG/PATCH) PATCH. TD SCH (08:02)
--- NOTE | 2018-11-10 10:36 | PDOC ---
PROGRESS NOTES Subjective Subjective She feels better today. Objective Objective Vital Signs Date Time Temp Pulse Resp B/P (MAP) Pulse Ox O2 Delivery O2 Flow Rate FiO2 11/10/18 09:42 20 97 Room Air 11/10/18 08:02 89 179/77 11/10/18 07:28 97.6 97.6 11/08/18 07:00 2.0 Intake and Output 11/10/18 07:00 Intake Total 800 ml Output Total 500 ml Balance 300 ml Intake Oral 800 ml Output Urine Total 500 ml Physical Exam Physical Exam She is supine in bed and comfortable and had wrist cock up splint in place to left wrist.She would like to hold of injections to her hip and low back at this time. Assessment Assessment Problems Medical Problems: (1) CAD (coronary artery disease) Status: Chronic (2) DM2 (diabetes mellitus, type 2) Status: Chronic (3) Fall Status: Acute (4) Hypertensive urgency Status: Chronic (5) RENAN (obstructive sleep apnea) Status: Chronic (6) Shortness of breath Status: Acute Plan Plan of Care Agree with plans for transfer to SNF when medically stable. Comment Review of Relevant I have reviewed the following items beatriz (where applicable) has been applied. Medications Current Medications Ondansetron HCl (Zofran Odt) 4 mg 1X ONCE PO Last administered on 11/06/18at 22:50; Start 11/06/18 at 22:45; Stop 11/06/18 at 22:46; Status DC Acetaminophen/ Hydrocodone Bitart (Lortab 5/325) 1 tab 1X ONCE PO Last administered on 11/06/18at 22:50; Start 11/06/18 at 22:45; Stop 11/06/18 at 22:46; Status DC Ondansetron HCl (Zofran) 4 mg PRN Q8HRS PRN IV NAUSEA/VOMITING Last administered on 11/07/18at 00:47; Start 11/07/18 at 00:30; Stop 11/07/18 at 09:24; Status DC Fentanyl Citrate (Fentanyl 2ml Vial) 50 mcg PRN Q1HR PRN IV PAIN Last administered on 11/07/18at 09:51; Start 11/07/18 at 00:30; Stop 11/08/18 at 00:29; Status DC Acetaminophen (Tylenol) 650 mg PRN Q4HRS PRN PO FEVER Last administered on 11/07/18 02:23; Start 11/07/18 at 00:30; Stop 11/07/18 at 17:08; Status DC Clonidine HCl (Catapres) 0.1 mg 1X ONCE PO Last administered on 11/07/18 02:23; Start 11/07/18 at 01:45; Stop 11/07/18 at 01:46; Status DC Ondansetron HCl (Zofran) 4 mg PRN Q6HRS PRN IV NAUSEA/VOMITING; Start 11/07/18 at 09:30 Clonidine HCl (Catapres) 0.1 mg PRN Q1HR PRN PO HYPERTENSION; Start 11/07/18 at 09:30 Aspirin (Children'S Aspirin) 81 mg DAILY PO Last administered on 11/10/18 08:02; Start 11/07/18 at 10:00 Atorvastatin Calcium (Lipitor) 10 mg HS PO Last administered on 11/09/18 20:38; Start 11/07/18 at 21:00 Losartan Potassium (Cozaar) 50 mg DAILY PO Last administered on 11/10/18 08:02; Start 11/07/18 at 10:00 Nitroglycerin (Nitrostat) 0.4 mg PRN Q5MIN PRN SL CHEST PAIN; Start 11/07/18 at 09:30 Topiramate (Topamax) 100 mg DAILY PO ; Start 11/07/18 at 10:00; Stop 11/08/18 at 07:56; Status DC Tramadol HCl (Ultram) 50 mg PRN BID PRN PO PAIN; Start 11/07/18 at 09:30; Stop 11/07/18 at 15:31; Status DC Trazodone HCl (Desyrel) 100 mg QHS PO Last administered on 11/09/18 20:38; Start 11/07/18 at 21:00 Albuterol Sulfate (Ventolin Neb Soln) 2.5 mg PRN Q4HRS PRN NEB SHORTNESS OF BREATH; Start 11/07/18 at 09:45 Diclofenac Sodium (Voltaren) 1 deana QID TP Last administered on 11/10/18 08:02; Start 11/07/18 at 13:00 Duloxetine HCl (Cymbalta) 60 mg BID PO Last administered on 11/07/18 21:34; Start 11/07/18 at 09:30; Stop 11/08/18 at 07:56; Status DC Carvedilol (Coreg) 3.125 mg BIDWMEALS PO Last administered on 11/10/18 08:02; Start 11/07/18 at 12:00 Ketorolac Tromethamine (Toradol 15mg Vial) 15 mg 1X ONCE IV Last administered on 11/07/18 12:29; Start 11/07/18 at 12:15; Stop 11/07/18 at 12:16; Status DC Celecoxib (CeleBREX) 100 mg BID PO ; Start 11/07/18 at 21:00; Stop 11/07/18 at 15:31; Status DC Celecoxib (CeleBREX) 100 mg BID PO Last administered on 11/10/18 08:02; Start 11/07/18 at 15:30 Tramadol HCl (Ultram) 50 mg PRN Q6HRS PRN PO MILD PAIN 1-3 Last administered on 11/08/18 13:21; Start 11/07/18 at 15:30 Acetaminophen/ Hydrocodone Bitart (Lortab 5/325) 1 tab PRN Q4HRS PRN PO MODERA TE PAIN, SEVERE PAIN Last administered on 11/10/18 08:02; Start 11/07/18 at 15:30 Lidocaine (Lidoderm) 1 patch DAILY TD Last administered on 11/10/18 08:02; Start 11/09/18 at 12:30 Miscellaneous (Lidoderm Patch Removal) 1 ea QHS ; Start 11/09/18 at 21:00 Active Scripts Active Reported Aspirin 81 Mg Tab.chew 1 Tab PO DAILY Losartan Potassium 50 Mg Tablet Mg PO DAILY Albuterol Sulfate Conc Neb Soln (Albuterol Sulfate) 2.5 Mg/0.5 Ml Vial.neb 1 Vial NEB Q4HRS PRN Flector (Diclofenac Epolamine) 1 Each Patch.td12 1 Each TD 3X/WEEK ON SEVEN DAYS THEN CHANGE. Tramadol Hcl 50 Mg Tablet 1 Tab PO BID PRN Atorvastatin Calcium 10 Mg Tablet 10 Mg PO HS Nitrostat (Nitroglycerin) 0.4 Mg Tab.subl 0.4 Mg SL PRN Q5MIN PRN Topiramate 100 Mg Tablet 100 Mg PO DAILY Trazodone Hcl 50 Mg Tablet 100 Mg PO HS Vitals/I & O Vital Sign - Last 24 Hours 11/09/18 11/09/18 11/09/18 11/09/18 11:00 12:59 13:47 15:00 Temp 98.9 98.8 98.9 98.8 Pulse 63 60 Resp 16 18 B/P (MAP) 146/59 (88) 161/85 (110) Pulse Ox 94 95 O2 Delivery Room Air Room Air Room Air Room Air 11/09/18 11/09/18 11/09/18 11/09/18 17:46 17:46 18:47 19:30 Pulse 60 B/P (MAP) 161/85 O2 Delivery Room Air Room Air Room Air 11/09/18 11/09/18 11/09/18 11/10/18 19:33 22:09 23:37 02:03 Temp 98.5 98.4 98.2 98.5 98.4 98.2 Pulse 62 60 58 Resp 18 20 18 B/P (MAP) 135/60 (85) 122/61 (81) 156/78 (104) Pulse Ox 96 93 92 O2 Delivery Room Air Room Air Room Air Room Air 11/10/18 11/10/18 11/10/18 11/10/18 07:28 08:02 08:02 08:02 Temp 97.6 97.6 Pulse 89 89 89 Resp 18 20 B/P (MAP) 179/77 (111) 179/77 179/77 Pulse Ox 94 97 O2 Delivery Room Air Room Air 11/10/18 11/10/18 08:15 09:42 Resp 20 Pulse Ox 97 O2 Delivery Room Air Room Air Intake and Output 11/09/18 11/09/18 11/10/18 15:00 23:00 07:00 Intake Total 200 ml 600 ml Output Total 200 ml 300 ml Balance 200 ml -200 ml 300 ml UMAIR NG MD Nov 10, 2018 10:36
[2018-11-10 10:37] VITALS: BP 146/66
[2018-11-10] MEDS ORDERED: POLYETHYLENE GLYCOL 3350 17 GM PACKET. PO PRN (10:45)
--- NOTE | 2018-11-10 10:52 | CONS ---
DATE OF CONSULTATION: 11/09/2018 ATTENDING PHYSICIAN: Dr. Huang. The patient was seen at the request of Dr. Issa for rehab evaluation. HISTORY OF PRESENT ILLNESS: This is a 73-year-old right-handed female. The patient had a fall on her buttocks at home on 11/07/2018 without any loss of consciousness or head trauma. She had radiological studies, which revealed fracture of left radial epiphysis involving the joint. The patient admits pain in her left wrist and hand and also tailbone area and right hip. She also admits some upper back area pain. The patient had radiological evidence of degenerative disk disease and degenerative joint disease of cervical and lumbar vertebrae and degenerative changes in her shoulders, hips, and knees. 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 FAMILY HISTORY: Coronary artery disease and diabetes mellitus. She lives alone and had been independent with her mobility, not using an assistive device prior to the hospitalization. She had two steps to handle to enter the house. ALLERGIES: THE PATIENT IS KNOWN ALLERGIC TO PENICILLIN, CLINDAMYCIN HYDROCHLORIDE, CLINDAMYCIN PALMITATE HYDROCHLORIDE, CLINDAMYCIN PHOSPHATE, DOCUSATE, LISINOPRIL, PECAN NUT, PROMETHAZINE HYDROCHLORIDE. Patient denies any tingling, numbness sensation in the extremities. PHYSICAL EXAMINATION: Today revealed an elderly female. She is alert, oriented to time, place, person, and circumstance and follows commands appropriately. Moves all 4 extremities voluntarily where she had 4+/5 grade muscle strength. Deep tendon reflexes are 1-2+ and symmetrical with absent ankle jerks and she had equal perception of touch and pinprick sensation bilaterally. She had diffuse tenderness to palpation over upper thoracic paraspinal muscles over sacroiliac joint area, right trochanteric bursa, medial knee joint line, and of course dorsal aspect of left wrist and left hand with there is a bruised area. The patient had some limitation of external rotation at both hip joints. She had crepitus on range of motion of her knee joint without any obvious knee joint effusion. She had no problem with her right foot Syme's amputation. She is having some pain on rolling from side to side. Straight leg raising test is negative bilaterally. ASSESSMENT: An elderly female with diabetes mellitus with peripheral neuropathy, osteoarthritis of both shoulders, knees, and hips, chronic lower back pain from degenerative disk disease of lumbar vertebrae, and also chronic neck and upper back pain from degenerative disk disease and degenerative joint disease of cervical vertebrae with recent lumbar sprain, right trochanteric bursitis. 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 RECOMMENDATIONS: Agree with the plan for physical therapy and occupational therapy to consider injecting painful sacroiliac joint area and right trochanteric bursa and knees on as needed basis. Dr. Issa, I appreciate asking me to participate in the care of this interesting patient. I will be glad to follow her with you as needed for rehabilitation. UMAIR NG MD DR: FERNANDO/bhanu JOB#: [id number] / [id number] VICKIE
[2018-11-10] MEDS ORDERED: CELE100C PO (10:59)
[2018-11-10] MEDS ORDERED: LIDO700A21 TD (10:59)
[2018-11-10] MEDS ORDERED: DOCU-109 PO (10:59)
[2018-11-10] MEDS ORDERED: DICL100G18 TP (10:59)
[2018-11-10] MEDS ORDERED: POLY17PO28 PO (10:59)
[2018-11-10] MEDS ORDERED: CARV3.1210 PO (10:59)
[2018-11-10] MEDS ORDERED: HYDR-2761 PO (10:59)
[2018-11-10] MEDS ORDERED: DOCUSATE SODIUM 100 MG CAPSULE. PO PRN (11:00)
--- NOTE | 2018-11-10 11:01 | SNU/HH DC ---
DISCHARGE ORDERS DISCHARGE INFORMATION: DISCHARGE DATE: Nov 10, 2018 FINAL DIAGNOSIS Problems Medical Problems: (1) CAD (coronary artery disease) Status: Chronic (2) DM2 (diabetes mellitus, type 2) Status: Chronic (3) Fall Status: Acute (4) Hypertensive urgency Status: Chronic (5) RENAN (obstructive sleep apnea) Status: Chronic (6) Shortness of breath Status: Acute CONDITION ON DISCHARGE: Stable CODE STATUS: Code Status: Full SENIOR LIVING: SNF STAY <30 DAYS: Yes POST DISCHARGE ORDERS: ACTIVITY ORDERS: Activity as tolerated, Other, see below WEIGHT BEARING STATUS: No restrictions, As tolerated, Other, see below DIET AFTER DISCHARGE: Cardiac CHECKS AFTER DISCHARGE: CHECKS AFTER DISCHARGE: Check blood press - daily, Check your Temp as needed FOLLOW-UP: PHYSICIAN FOLLOW-UP: primary care TREATMENT/EQUIPMENT ORDERS: ADAPTIVE EQUIPMENT NEEDED: Walker Physical Therapy For: Evalulation/Treatment Occupational Therapy For: Evaluation/Treatment DISCHARGE MEDICATIONS: Home Meds Active Scripts Celecoxib (CELEBREX) 100 Mg Capsule, 100 MG PO BID PRN for PAIN, #30 CAP Prov:KATELIN ROSENBERG MD 11/10/18 Polyethylene Glycol 3350 (POLYETHYLENE GLYCOL 3350) 17 Gm Powd.pack, 17 GM PO PRN BID PRN for CONSTIPATION, #30 PKT Prov:KATELIN ROSENBERG MD 11/10/18 Docusate Sodium (COLACE) 100 Mg Capsule, 100 MG PO DAILY for constipation, #30 CAP Prov:KATELIN ROSENBERG MD 11/10/18 Diclofenac Sodium (VOLTAREN) 100 Gm Gel..gram., 1 GM TP QID PRN for PAIN, #100 GM Prov:KATELIN ROSENBERG MD 11/10/18 Lidocaine (Lidocaine PATCH ) 1 Each Adh..patch, 1 PATCH TD DAILY for back pain, #7 PATCH Prov:KATELIN ROSENBERG MD 11/10/18 Hydrocodone Bit/Acetaminophen (HYDROCODONE-APAP 5-325 ) 1 Tab Tablet, 1 TAB PO PRN Q4HRS PRN for MODERATE PAIN, SEVERE PAIN, #30 TAB Prov:KATELIN ROSENBERG MD 11/10/18 Carvedilol (CARVEDILOL ) 3.125 Mg Tablet, 3.125 MG PO BIDWMEALS for htn, #60 TAB Prov:KATELIN ROSENBERG MD 11/10/18 Reported Medications Aspirin (ASPIRIN) 81 Mg Tab.chew, 1 TAB PO DAILY for CARDIAC, #30 TAB 3 Refills 11/07/18 Losartan Potassium (LOSARTAN POTASSIUM) 50 Mg Tablet, MG PO DAILY, TAB 05/22/16 Albuterol Sulfate (ALBUTEROL SULFATE CONC NEB SOLN) 2.5 Mg/0.5 Ml Vial.neb, 1 VIAL NEB Q4HRS PRN for SHORTNESS OF BREATH, #60 VIAL 1 Refill 05/20/16 Diclofenac Epolamine (FLECTOR) 1 Each Patch.td12, 1 EACH TD 3X/WEEK for PAIN ON SEVEN DAYS THEN CHANGE. 05/20/16 Atorvastatin Calcium (ATORVASTATIN CALCIUM) 10 Mg Tablet, 10 MG PO HS for FOR CHOLESTEROL, #30 TAB 0 Refills 05/20/16 Nitroglycerin (NITROSTAT) 0.4 Mg Tab.subl, 0.4 MG SL PRN Q5MIN PRN for CHEST PAIN, BOTTLE 05/20/16 Topiramate (TOPIRAMATE) 100 Mg Tablet, 100 MG PO DAILY, TAB 05/20/16 Trazodone Hcl (TRAZODONE HCL) 50 Mg Tablet, 100 MG PO HS 03/23/13 Discontinued Reported Medications Tramadol Hcl (TRAMADOL HCL) 50 Mg Tablet, 1 TAB PO BID PRN for PAIN, #60 TAB 05/20/16 KATELIN ROSENBERG MD Nov 10, 2018 11:01
--- NOTE | 2018-11-10 11:05 | PDOC3 ---
Discharge Summary Visit Information Date of Admission: Nov 06, 2018 Date of Discharge: Nov 10, 2018 Final Diagnosis 1. Mechanical fall: . 2. LEFT WRIST FX - nondisplaced distal left radial epiphyseal fracture. 3. Chest pain/SOA: trops nml. Chronic RBBB. 4. CAD with previous redo CABG 02/2014 3. HTN urgency: improving 4. RENAN; improved with weight loss 5 DM2 6. PPM with hx of SSS. [facility] 7. Right prosthetic foot Problems Medical Problems: (1) CAD (coronary artery disease) Status: Chronic (2) DM2 (diabetes mellitus, type 2) Status: Chronic (3) Fall Status: Acute (4) Hypertensive urgency Status: Chronic (5) RENAN (obstructive sleep apnea) Status: Chronic (6) Shortness of breath Status: Acute Brief Hospital Course Allergies Allergies Coded Allergies Type Severity Reaction Last Updated Verified clindamycin HCl Allergy Severe hives 03/23/13 Yes clindamycin palmitate HCl Allergy Severe hives 03/23/13 Yes clindamycin phosphate Allergy Severe hives 03/23/13 Yes lisinopril Allergy Severe Shortness of Air 03/23/13 Yes pecan nut Allergy Severe 11/07/18 Yes Penicillins Allergy Intermediate Hives 03/23/13 Yes cheese Allergy Intermediate pebbles cheese 11/09/18 Yes docusate Allergy Intermediate 03/18/16 Yes promethazine HCl Allergy Intermediate "Regress to childhood" 03/23/13 Yes Vital Signs Vital Signs Date Time Temp Pulse Resp B/P (MAP) Pulse Ox O2 Delivery O2 Flow Rate FiO2 11/10/18 10:37 98.1 60 18 146/66 (92) 93 Room Air 98.1 Brief Hospital Course Ms. Noe is a 73 old female, admit after a fall with wrist pain, back pain, poorly ambulatory, weak pain control physiatry consult OOB as able to snu coreg added for Htn Discharge Information Condition at Discharge: Improved Follow Up: Weeks Disposition/Orders: D/C to Another Facility Scheduled Aspirin (Aspirin) 81 Mg Tab.chew, 1 TAB PO DAILY for CARDIAC, #30 Ref 3 (Reported) Entered as Reported by: Melba Phillips on 11/07/18242 Last Action: Continued on 11/07/18922 by EVELYN MOORE Atorvastatin Calcium (Atorvastatin Calcium) 10 Mg Tablet, 10 MG PO HS for FOR CHOLESTEROL, #30 Ref 0 (Reported) Entered as Reported by: BRENNEN EDEN on 05/20/16751 Last Action: Continued on 11/07/18922 by EVELYN MOORE Carvedilol (Carvedilol ) 3.125 Mg Tablet, 3.125 MG PO BIDWMEALS for htn, #60 Prescribed by: KATELIN ROSENBERG on 11/10/18 1059 Diclofenac Epolamine (Flector) 1 Each Patch.td12, 1 EACH TD 3X/WEEK for PAIN, (Reported) ON SEVEN DAYS THEN CHANGE. Entered as Reported by: BRENNEN EDEN on 05/20/16 0804 Last Action: Converted on 11/07/18922 by EVELYN MOORE Lidocaine (Lidocaine PATCH ) 1 Each Adh..patch, 1 PATCH TD DAILY for back pain, #7 Prescribed by: KATELIN ROSENBERG on 11/10/18 105 Losartan Potassium (Losartan Potassium) 50 Mg Tablet, MG PO DAILY, (Reported) Entered as Reported by: KWAKU DIALLO on 05/22/16 111 Last Action: Continued on 11/07/18922 by EVELYN MOORE Topiramate (Topiramate) 100 Mg Tablet, 100 MG PO DAILY, (Reported) Entered as Reported by: BRENNEN EDEN on 05/20/16751 Last Action: Continued on 11/07/18922 by EVELYN MOORE Trazodone Hcl (Trazodone Hcl) 50 Mg Tablet, 100 MG PO HS, (Reported) Entered as Reported by: LISSET CARBONE on 03/23/132201 Last Action: Continued on 11/07/18922 by EVELYN MOORE Scheduled PRN Albuterol Sulfate (Albuterol Sulfate Conc Neb Soln) 2.5 Mg/0.5 Ml Vial.neb, 1 VIAL NEB Q4HRS PRN for SHORTNESS OF BREATH, #60 Ref 1 (Reported) Entered as Reported by: BRENNEN EDEN on 05/20/1635 Last Action: Converted on 11/07/18922 by EVELYN MOORE Celecoxib (Celebrex) 100 Mg Capsule, 100 MG PO BID PRN for PAIN, #30 Prescribed by: KATELIN ROSENBERG on 11/10/18 1059 Diclofenac Sodium (Voltaren) 100 Gm Gel..gram., 1 GM TP QID PRN for PAIN, #100 Prescribed by: KATELIN ROSENBERG on 11/10/18 1059 Hydrocodone Bit/Acetaminophen (Hydrocodone-Apap 5-325 ) 1 Tab Tablet, 1 TAB PO PRN Q4HRS PRN for MODERATE PAIN, SEVERE PAIN, #30 Prescribed by: KATELIN ROSENBERG on 11/10/18 1059 Nitroglycerin (Nitrostat) 0.4 Mg Tab.subl, 0.4 MG SL PRN Q5MIN PRN for CHEST PAIN, (Reported) Entered as Reported by: BRENNEN EDEN on 05/20/16 0752 Last Action: Continued on 11/07/18922 by EVELYN MOORE Polyethylene Glycol 3350 (Polyethylene Glycol 3350) 17 Gm Powd.pack, 17 GM PO PRN BID PRN for CONSTIPATION, #30 Prescribed by: KATELIN ROSENBERG on 11/10/18 1059 Discontinued Medications Tramadol Hcl (Tramadol Hcl) 50 Mg Tablet, 1 TAB PO BID PRN for PAIN, #60 (Reported) Entered as Reported by: BRENNEN EDEN on 05/20/16753 Last Action: Continued on 11/07/18922 by EVELYN MOORE Patient Instructions Patient Instructions > 30 min face to face discuss no stool for days, add miralax BID prn cont current KATELIN ROSENBERG MD Nov 10, 2018 11:05
[2018-11-10] MEDS ORDERED: MAGNESIUM HYDROXIDE 2,400 MG/30 ML ORAL.SUSP. PO PRN (11:15)
--- NOTE | 2018-11-10 11:44 | NUR ---
SS following up with discharge planning. Pt accepted at [facility]. Discharge orders received. SS phoned and faxed discharge orders to [facility] [place], ; fax [phone]. Pt will discharge today and go to [facility] between 1700 and 1730. [facility] to provide transportation. Pt, pt's RN, and pt's daughter notified.
[2018-11-10 14:54] VITALS: BP 188/83
[2018-11-10 17:11] VITALS: BP 162/83
== END 2018-11-10 18:01 | DRG 563 ==
LOC: ER 21:47 → 2 SOUTH 11-07 00:25
PROVIDERS: ADMIT Internal Medicine; ATTEND Internal Medicine
PROC: 2W3FX1Z Immobilization of Left Hand using Splint (ICD-10-PCS; 2018-11-07)
PROC: 4B09XSZ Measurement of Respiratory Pacemaker, External Approach (ICD-10-PCS; principal; 2018-11-08)
DX: S52.502A Unspecified fracture of the lower end of left radius, initial encounter for closed fracture (principal); I16.0 Hypertensive urgency; E11.42 Type 2 diabetes mellitus with diabetic polyneuropathy; E78.00 Pure hypercholesterolemia, unspecified; E78.5 Hyperlipidemia, unspecified; G47.33 Obstructive sleep apnea (adult) (pediatric); G89.29 Other chronic pain; I10 Essential (primary) hypertension; I25.10 Atherosclerotic heart disease of native coronary artery without angina pectoris; I25.2 Old myocardial infarction; I45.10 Unspecified right bundle-branch block; I48.91 Unspecified atrial fibrillation; E66.01 Morbid (severe) obesity due to excess calories; G43.909 Migraine, unspecified, not intractable, without status migrainosus; J45.909 Unspecified asthma, uncomplicated; K21.9 Gastro-esophageal reflux disease without esophagitis; W18.39XA Other fall on same level, initial encounter; M19.011 Primary osteoarthritis, right shoulder; M19.012 Primary osteoarthritis, left shoulder; M47.812 Spondylosis without myelopathy or radiculopathy, cervical region; M51.36 Other intervertebral disc degeneration, lumbar region; M79.7 Fibromyalgia; S70.02XA Contusion of left hip, initial encounter; Z82.49 Family history of ischemic heart disease and other diseases of the circulatory system; Z89.519 Acquired absence of unspecified leg below knee; Z95.0 Presence of cardiac pacemaker; Z88.0 Allergy status to penicillin; Z88.8 Allergy status to other drugs, medicaments and biological substances; Z91.018 Allergy to other foods; Z95.1 Presence of aortocoronary bypass graft; Z83.3 Family history of diabetes mellitus; Y93.89 Activity, other specified; Y92.098 Other place in other non-institutional residence as the place of occurrence of the external cause; Y99.8 Other external cause status; Z68.31 Body mass index [BMI] 31.0-31.9, adult
CPT/HCPCS: 36415; 70450; 71045; 72125; 72128; 72131; 72192; 73030; 73060; 73090; 73110; 80053; 80061; 81001; 84443; 84484; 85007; 85025; 93005; 93306; 96374; J1885; J2405; J3010; Q0162; 97110; 97116; 97530; 97535; 99285-25; G0378

== ENCOUNTER → 2021-06-19 | Outpatient (CLI) | payer MEDICARE, BC ==
[~2021-06-19] MED LIST changes: +ASPI-630 PO; +CARV3.1210 PO; +CELE100C PO; +DICL100G54 TP; +DOCU-109 PO; -DULO60CA6 PO; +DULO60CA7 PO; +HYDR-2761 PO; -ISOS30TA4 PO; +ISOS30TA68 PO; -ISOS60TA2 PO; +ISOS60TA55 PO; +LIDO700A21 TD; -NITR0.4T SL; +NITR0.4T24 SL; +POLY17PO52 PO; +POTA-121 PO; -POTA20TA4 PO; +PREG-9 PO; -PREG50CA PO; +PREG50CA91 PO; -PREG75CA PO; +REGADENOSON 0.4 MG/5 ML DISP.SYRIN. IV ONE; +SIMV40TA18 PO; -SIMV40TA3 PO
--- NOTE | 2021-06-19 17:35 | CARD ---
MR#: [id number] Date of Study: 06/19/2021 Ordering Physician: MITCHELL REGAN, Referring Physician: MITCHELL REGAN, Tech: Kenroy Brown [facility] APPROVED REPORT EXAM: Two-dimensional and M-mode echocardiogram with Doppler and color Doppler. Other Information Quality : FairHR: 91bpm Rhythm : NSR INDICATION Cardiac Disease: CAD Surgery/Intervention Pacemaker: RISK FACTORS Hypertension Hyperlipidemia 2D DIMENSIONS Left Atrium(2D)4.2 (1.6-4.0cm)IVSd1.3 (0.7-1.1cm) Aortic Root(2D)2.7 (2.0-3.7cm)LVDd4.4 (3.9-5.9cm) LVOT Diameter1.8 (1.8-2.4cm)PWd1.2 (0.7-1.1cm) LA Lkkavu30 (18-58mL)LVDs3.7 (2.5-4.0cm) FS (%) 17.8 %SV33.4 ml Aortic Valve AoV Peak Kevin.171.1cm/sAoV VTI33.9cm AO Peak GR.11.7mmHgLVOT Peak Kevin.66.5cm/s LVOT VTI 12.22cmAO Mean GR.6mmHg QUOC (VMAX)0.88al6DLO (VTI)0.93cm2 Mitral Valve MV E Fojngprw149.2cm/sMV DECEL FSXY239ze MV A Gevxzqvz30.9cm/sMV E Mean Gr.3mmHg MV LTY48kgP/A Ratio1.1 MVA (PHT)5.29cm2 TDI E/Lateral E'20.8E/Medial E'28.1 Pulmonary Valve PV Peak Aozysivp182.2cm/sPV Peak Grad.6mmHg Tricuspid Valve TR P. Daqepwgd660dx/sTR Peak Gr.41mmHg Pulmonary Vein S1 Jtnytlmq53.1cm/sD2 Byllavuy84.7cm/s LEFT VENTRICLE The left ventricle is normal size. There is normal left ventricular wall thickness. The LV systolic f unction is mildly impaired. The Ejection Fraction is 45-50%. There is slight distal septal/apical hyp okinesis. Transmitral Doppler flow pattern is Grade II-pseudonormal filling dynamics. No left ventric le thrombus noted on this study. There is no ventricular septal defect visualized. There is no left v entricular aneurysm. There is no mass noted in the left ventricle. RIGHT VENTRICLE The right ventricle is normal size. There is normal right ventricular wall thickness. The right ventr icular systolic function is normal. ATRIA The left atrium is mild to moderately dilated. The right atrium size is normal. The interatrial septu m is intact with no evidence for an atrial septal defect or patent foramen ovale as noted on 2-D or D oppler imaging. AORTIC VALVE The aortic valve is mildly sclerotic. Doppler and Color Flow revealed no significant aortic regurgita tion. There is no significant aortic valvular stenosis. There is no aortic valvular vegetation. MITRAL VALVE The mitral valve is thickened but opens well. There is no evidence of mitral valve prolapse. There is no mitral valve stenosis. Doppler and Color-flow revealed trace to mild mitral regurgitation. TRICUSPID VALVE The tricuspid valve is normal in structure and function. Doppler and Color Flow revealed trace tricus pid regurgitation. There is no tricuspid valve prolapse or vegetation. There is no tricuspid valve st enosis. PULMONIC VALVE The pulmonary valve is normal in structure and function. There is mild pulmonic regurgitation There i s no pulmonic valvular stenosis. GREAT VESSELS The aortic root is normal in size. The ascending aorta is normal in size. The pulmonary artery is nor mal. The IVC is normal in size and collapses >50% with inspiration. PERICARDIAL EFFUSION There is no pleural effusion. There is no evidence of significant pericardial effusion. Critical Notification Critical Value: No <Conclusion> The left ventricle is normal size. The LV systolic function is mildly impaired. The Ejection Fraction is 45-50%. There is slight distal septal/apical hypokinesis. Doppler and Color Flow revealed no significant aortic regurgitation. There is no significant aortic valvular stenosis. Doppler and Color-flow revealed trace to mild mitral regurgitation. Doppler and Color Flow revealed trace tricuspid regurgitation. Signed by : Huey Ng MD Electronically Approved : 06/19/2021 17:35:09
--- NOTE | 2021-06-19 17:52 | RAD ---
MR#: [id number] Date of Study: 06/19/2021 Ordering Physician: MITCHELL REGAN, Referring Physician: FINA MARTÍNEZ Tech: RT Yisel (R) (N) APPROVED REPORT Test Type: Pharmacological Stress Nurse/Tech: Daria Tyson RN Test Indications: CAD Cardiac History: Hypertension,pacemaker,CABG Medications: See Electronic Medical Record Medical History: See Electronic Medical Record Resting ECG: SR with BBB and PVCs Resting Heart Rate: 85 bpm Resting Blood Pressure: 207/96mmHg Pretest Chest Pain: No chest pain Nurse/Tech Notes S1,S2 and lungs diminished in the bases. Consent: The procedure was explained to the patient in lay terms. Informed consent was witnessed. Cyrus eout was entered into [employer]. History and Stress Test performed by GEOVANY Cardenas, ARRT (R) (N) Pharm. Details Pharmacologic stress testing was performed using 0.4mg per 5ml of regadenoson given intravenously ove r 7-10 seconds. Stress Symptoms Dyspnea,Nausea POST EXERCISE Reason for Termination: Infusion complete Target HR: Yes Max HR: 144 bpm Max Blood Pressure: 197/80mmHg Blood Pressure response to exercise: Normal blood pressure response during stress. Heart Rate response to exercise: WNL Chest Pain: No. Arrhythmia: Yes. PVC's ST Change: No. INTERPRETATION Stress EKG Conclusion: The resting EKG showed a sinus rhythm with nonspecific ST-T wave changes. The stress EKG showed no significant changes from baseline. Abnormal resting EKG but no EKG evidence of stress-induced ischemia. Imaging Protocol IMAGE PROTOCOL: Rest Tc-99m/stress Tc-99m 1 day Rest: Stress: Viability: Radiopharm.Tc99m [id number] Sestamibi Dose9.5mCi 32.3mCi Duration 13.5min. 13.5min. Img Date 06/19/2021 06/19/2021 Inj-Img Uxnn90atz. 60min. Rest Admin Site:IV - Right AntecubitalAdministrator:RT Yisel (R)(N) Stress Admin Site: IV - Right AntecubitalAdministrator: Angie Urena, RT (R)(N) STRESS DATA End Diast. Vol.102.0mlLVEDV index BSA63.0ml End Syst. Vol.56.0mlLVESV index BSA35.0ml Myocardial Ccgd178.0gEject. Hciuhhiy39.0% Stress Scores Regional WT2.00Summed WT26.00 Regional WM0.00Summed WM17.00 LV Perfusion The stress scans show an apical defect. The rest scans show an apical defect. 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 No other areas of abnormality are present. Wall Motion LV systolic function is mildly decreased at 45%. LV Perf. Quant 17 Seg. SSS18.00 17 Seg. SRS16.00 17 Seg. SDS6.00 Stress Defect Extent (% LAD)38.80Rest Defect Extent (% LAD)45.00Rev. Defect Extent (% LAD)3.10 Stress Defect Extent (% LCX) 63.80Rest Defect Extent (% LCX)15.00Rev. Defect Extent (% LCX)50.00 Stress Defect Extent (% RCA)0.00Rest Defect Extent (% RCA)3.30Rev. Defect Extent (% RCA)0.00 Stress Defect Extent (% FABIANO)37.00Rest Defect Extent (% FABIANO)32.00Rev. Defect Extent (% FABIANO)11.70 Conclusion 1. Baseline abnormal EKG but no EKG evidence of stress-induced ischemia. 2. 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 3. No other regions of abnormality are present on nuclear imaging. 4. Mildly decreased ejection fraction at 45%. 5. Moderate risk Lexiscan nuclear stress test. Signed by : Huey Ng MD Electronically Approved : 06/19/2021 17:52:11
== END ==
LOC: NM 08:02
PROVIDERS: ATTEND Internal Medicine Cardiovascular Disease
DX: I08.8 Other rheumatic multiple valve diseases (principal); I25.10 Atherosclerotic heart disease of native coronary artery without angina pectoris; Z95.0 Presence of cardiac pacemaker
CPT/HCPCS: 78452; 93017; 93306; A9500; J2785; C8929